=== PATIENT | male | born 1960 | race Caucasian/White ===

== ENCOUNTER 2019-05-22 06:00 | Day surgery (SDC) | payer SELFPAY ==
[2019-05-21 09:24] VITALS: BMI 28.4
[2019-05-22 06:15] VITALS: BP 150/87; PULSE 67; RESP 18; TEMP 36.2; O2SAT 98
[2019-05-22] MEDS: sodium chloride 0.9% 1,000 ML 30 ML (06:31)
--- NOTE | 2019-05-22 06:57 | ANES.PREANE2 ---
Pre-Anesthetic Assessment Pre-Anesthetic Assessment: Height/Weight: Height 1.73 m Weight 84.822 kg Temp Pulse Resp BP Pulse Ox 97.2 F L 67 18 150/87 98 05/22/19 06:15 05/22/19 06:15 05/22/19 06:15 05/22/19 06:15 05/22/19 06:15 Preop Diagnosis: History of hepatitis C and diverticulitis Proposed Procedure: Operation Date: 05/22/19 07:30 Proposed Procedures p EGD/COLON(Not Applicable) - Rory Carrion MD s EGD/COLON(Not Applicable) - Rory Carrion MD Was Beta Cesar taken within 24 hours: N/A Last intake: Intake Last Liquid Date 05/22/19 Last Liquid Time 00:00 Social: Social History: Tobacco and No alcohol Packs per day: 1 Pack years: 40+ Exam: Pre-Anes Outpt Exam: alert, oriented x 3, clear to auscultation bilaterally and regular rate & rhythm Airway: Submandibular: WNL Cervical ROM: WNL Dentition: False Pulmonary: Pulmonary: COPD CV/HEM: CV/HEM: HTN : : None reported Hepatic: Hepatic: Cirrohsis (C) GI: GI: None reported Metabolic: Metabolic: None reported Musc/skel: Musc/skel: Lower Back Pain and OA/DJD Neuropsych: Neuropsych: None reported Anesthetic Plan: ASA status: 2 Anesthesia: MAC Risk of > 500 ml blood loss (7ml/kg in children): No PFSH Anesthesia PFSH: Medical History (Updated 04/13/19 @ 17:01 by Rory Carrion MD) Acute diverticulitis Social History Smoking and tobacco status: current every day smoker cigarettes Packs smoked per day: 1 Quit status (tobacco): has quit using tobacco Year quit tobacco: 6 months Second hand smoke exposure: No Alcohol intake: never Desire information about alcohol rehabilitation?: No Desire information about substance/drug rehabilitation?: No Adopted: No Caregiver/support person: No Lives independently: Yes Household members: none Housing: House Marital status: Highest education level completed: High School Graduate service: No Current occupational status: disabled Current occupational exposures/hazards: No Pets and animals: No History of recent travel: No Leisure activites: hunting and fishing Sexually active: No Current gender identity: Male Amirah/Zoroastrianism: Episcopal Special amirah needs: No Agree to transfusion: Yes Financial difficulty paying for basics: Decline to Answer Data Anesthesia Cardiac Studies: No Data to Display
--- NOTE | 2019-05-22 07:07 | PM.HP ---
Providers/Chief Complaint Primary Care Provider: BOB Berrios History of Present Illness Chief Complaint: Abdominal pain History of present illness: Guanaco Booth is a 58 year old male referred to me due to history of upper abdominal pain and concern for gallbladder disease full H&P was obtained 11 April 2019 Gives history of hepatitis C pending treatment and evaluation by Dr. Duron Currently the patient had another episode of diverticulitis 3 weeks ago and it was first time to be disclosed to me today Review of Systems General: Reports: 10 or more systems reviewed and unremarkable except in HPI and below Medications/Allergies Allergies Allergy/AdvReac Type Severity Reaction Status Date / Time No Known Allergies Allergy Verified 05/22/19 07:08 PFSH Acute PFSH: Medical History (Updated 05/22/19 @ 07:09 by Rory Carrion MD) Acute diverticulitis BPH (benign prostatic hyperplasia) Cholelithiasis Constipation Fatty infiltration of liver Hepatitis C antibody positive in blood Hypertension Pre-diabetes Family History Father Cancer prostate Grandfather Cancer lung Family/Other Hypertension Diabetes Denies family history of Anesthesia complication Bleeding disorder Social History Smoking and tobacco status: current every day smoker cigarettes Packs smoked per day: 1 Quit status (tobacco): has quit using tobacco Year quit tobacco: 6 months Second hand smoke exposure: No Alcohol intake: never Desire information about alcohol rehabilitation?: No Desire information about substance/drug rehabilitation?: No Adopted: No Caregiver/support person: No Lives independently: Yes Household members: none Housing: House Marital status: Highest education level completed: High School Graduate service: No Current occupational status: disabled Current occupational exposures/hazards: No Pets and animals: No History of recent travel: No Leisure activites: hunting and fishing Sexually active: No Current gender identity: Male 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 Special amirah needs: No Agree to transfusion: Yes Financial difficulty paying for basics: Decline to Answer Vitals/I&O/Wt Last Vital Signs Temp 97.2 F L 05/22/19 06:15 Pulse 67 05/22/19 06:15 Resp 18 05/22/19 06:15 BP 150/87 05/22/19 06:15 Pulse Ox 98 05/22/19 06:15 Weight last 48 hrs Weight 187 lb Weight 187 lb Physical Exam Const: COMMON NORMALS: no apparent distress and oriented x3 GENERAL APPEARANCE: cooperative ORIENTATION/CONSCIOUSNESS: Yes awake, Yes oriented to person, Yes oriented to place and Yes oriented to time HENMT: COMMON NORMALS: normocephalic HEAD & SCALP: normocephalic Eye: COMMON NORMALS: PERRL and no scleral icterus PUPIL: Yes PERRL GI: COMMON NORMALS: soft to palpation; negative for no hepatosplenomegaly INSPECTION: Yes normal to inspection PALPATION: Yes soft, No firm, No tender, No guarding, No rigid and No no hepatosplenomegaly A&P Assessment and plan (1) Abdominal pain: The original plan was to perform diagnostic EGD and colonoscopy giving the fact that the patient had recent diverticulitis likely I will limit the colonoscopy to a flex sig to minimize risk of perforation Informed consent per Follow on Dr. Duron's recommendations and down the road patient should benefit from gallbladder Status: Acute Code(s): R10.9 - Unspecified abdominal pain Attestations Medical Necessity Statement*: Outpatient Time Spent in Patient Care: 16 - 35 minutes (>than 50% of time spent in counselling and/or direct pt care on unit). Coding Level of Care Code Acute Community Service Representative for Chg Fwd Diagnoses Abdominal pain R10.9
--- NOTE | 2019-05-22 07:25 | SUR.OPER ---
2 clips placed at sigmoid colon polyp bx site
--- NOTE | 2019-05-22 07:32 | SUR.OPER ---
addition clip placed at second sigmoid colon bx site
[2019-05-22 07:39] VITALS: BP 161/92; PULSE 70; RESP 16; TEMP 36.4; O2SAT 98
--- NOTE | 2019-05-22 07:41 | ANE.PACU2 ---
 Inpatient post-anesthesia follow up: Airway intact: Yes Vital signs: Temperature 97.6 F Pulse Rate 70 Respiratory Rate 16 Blood Pressure 161/92 Pulse Oximetry 98 Oxygen Delivery Me thod Nasal Cannula Oxygen Flow Rate 3.0 Fraction of Inspir ed Oxygen Hydration adequate: Yes Nausea and vomiting: No Pain level: 1 Mental status: Baseline
[2019-05-22 07:59] VITALS: BP 151/96; PULSE 66; RESP 18; O2SAT 100
[2019-05-23 05:41] LABS: H. Pylori / CLO Test Negative
== END 2019-05-22 08:11 | disposition home or self-care (01) ==
PROVIDERS: Family Provider Internal Medicine; PCP Nurse Practitioner Family; Visit Provider Surgery
PROC: 0DJ08ZZ Inspection of Upper Intestinal Tract, Via Natural or Artificial Opening Endoscopic (ICD-10-PCS; CPT 43235; principal; 2019-05-22 07:30)
PROC: 0DJD8ZZ Inspection of Lower Intestinal Tract, Via Natural or Artificial Opening Endoscopic (ICD-10-PCS; CPT 45378; 2019-05-22 07:30)
DX: R10.9 Unspecified abdominal pain (principal); D12.5 Benign neoplasm of sigmoid colon; K62.1 Rectal polyp; K57.30 Diverticulosis of large intestine without perforation or abscess without bleeding; K21.9 Gastro-esophageal reflux disease without esophagitis; K29.70 Gastritis, unspecified, without bleeding; N40.0 Benign prostatic hyperplasia without lower urinary tract symptoms; B19.20 Unspecified viral hepatitis C without hepatic coma; R73.03 Prediabetes; I10 Essential (primary) hypertension; Z82.49 Family history of ischemic heart disease and other diseases of the circulatory system; Z83.3 Family history of diabetes mellitus; F17.210 Nicotine dependence, cigarettes, uncomplicated; J44.9 Chronic obstructive pulmonary disease, unspecified; M19.90 Unspecified osteoarthritis, unspecified site
CPT/HCPCS: 12345; 43239; 45385; 87077; 88305; J2704; J7030

== ENCOUNTER → 2019-07-23 16:25 | Outpatient (BNVA) | payer SELFPAY | PROVIDERS: Family Provider Internal Medicine; PCP Nurse Practitioner Family; Visit Provider Internal Medicine | DX: B19.20 Unspecified viral hepatitis C without hepatic coma (principal) | CPT/HCPCS: 87522 ==

== ENCOUNTER 2019-09-19 16:31 | Outpatient (CLI) | payer SELFPAY ==
[2019-09-19 17:31] LABS: Creatinine Urine, Random 35 mg/dL (39-259)
[2019-09-19 17:40] LABS: Microalbum Creatinine Ratio Ur 29 mg/dL (0-20); Microalbumin Random Urine 1 ug/dL (0-20)
== END 2019-09-19 16:32 | disposition home or self-care (01) ==
LOC: LAB 16:32
PROVIDERS: PCP Nurse Practitioner Family; Visit Provider Nurse Practitioner Family
DX: E11.9 Type 2 diabetes mellitus without complications (principal)
CPT/HCPCS: 82044; 85025

== ENCOUNTER 2019-09-20 15:56 | Outpatient (CLI) | payer SELFPAY | END 2019-09-20 15:57 | disposition home or self-care (01) | LOC: LAB 15:57 | PROVIDERS: PCP Nurse Practitioner Family; Visit Provider Nurse Practitioner Family | DX: E11.9 Type 2 diabetes mellitus without complications (principal) | CPT/HCPCS: 85025 ==

== ENCOUNTER 2019-09-23 17:21 | Outpatient (CLI) | payer SELFPAY ==
[2019-09-23 20:19] LABS: Basophils # 0.1 10^3/uL (0.0-0.1); Basophils % 0.9 %; Eosinophils # 0.1 10^3/uL (0.0-0.8); Eosinophils % 1.3 %; Hematocrit 44.6 % (42.0-52.0); Hemoglobin 14.2 g/dL (11.7-16.6); Lymphocytes # 1.5 10^3/uL (0.8-4.8); Lymphocytes % 19.7 %; Mean Corpuscular HGB Conc 31.8 g/dL (30.0-36.0); Mean Corpuscular Hemoglobin 29.3 pg (28.0-34.0); Mean Corpuscular Volume 92.1 fL (80-94); Mean Platelet Volume 12.1 fL (7.4-10.4); Monocytes # 0.5 10^3/uL (0.2-0.9); Monocytes % 6.3 %; Neutrophils # 5.5 10^3/uL (1.8-7.7); Neutrophils % 71.3 %; Nucleated Red Blood Cells % 0 %; Platelet Count 231 10^3/cmm (130-400); Red Blood Count 4.84 10^6/uL (4.1-5.3); Red Cell Distribution Width 12.6 % (12.1-15.1); White Blood Count 7.7 10^3/uL (4.0-10.0)
[2019-09-23 21:10] LABS: Estmated Average Glucose 117; Hemoglobin A1C 5.7 % (4.0-6.0)
[2019-09-23 21:13] LABS: Anion Gap 18.5 (5-19); Blood Urea Nitrogen 10 mg/dL (8-23); Calcium 9.9 mg/dL (8.5-10.5); Carbon Dioxide 26 mmol/L (22-29); Chloride 101 mmol/L (98-107); Glomerular Filtration Rate 85.8 mL/min (90-130); Glucose 116 mg/dL (65-115); Osmolality Calculated 289 mOsm/kg (285-295); Potassium 4.5 mmol/L (3.5-5.1); Sodium 141 mmol/L (136-145)
== END 2019-09-23 17:22 | disposition home or self-care (01) ==
LOC: LAB 17:22
PROVIDERS: PCP Nurse Practitioner Family; Visit Provider Nurse Practitioner Family
DX: E11.9 Type 2 diabetes mellitus without complications (principal)
CPT/HCPCS: 80048; 83036; 85025

== ENCOUNTER 2019-11-18 11:47 | Outpatient (CLI) | payer SELFPAY ==
[2019-11-18 12:14] LABS: Basophils # 0.1 10^3/uL (0.0-0.1); Basophils % 0.6 %; Eosinophils # 0.1 10^3/uL (0.0-0.8); Hematocrit 44.7 % (42.0-52.0); Lymphocytes # 1.5 10^3/uL (0.8-4.8); Lymphocytes % 16.9 %; Mean Corpuscular HGB Conc 33.6 g/dL (30.0-36.0); Mean Corpuscular Hemoglobin 30.1 pg (28.0-34.0); Mean Corpuscular Volume 89.8 fL (80-94); Mean Platelet Volume 10.1 fL (7.4-10.4); Monocytes # 0.5 10^3/uL (0.2-0.9); Monocytes % 5.6 %; Neutrophils # 6.71 10^3/uL (1.8-7.7); Neutrophils % 75.3 %; Nucleated Red Blood Cells % 0 %; Platelet Count 261 10^3/cmm (130-400); Red Blood Count 4.98 10^6/uL (4.1-5.3); Red Cell Distribution Width 12.1 % (12.1-15.1); White Blood Count 8.9 10^3/uL (4.0-10.0)
[2019-11-18 12:27] LABS: INR 0.93 (0.8-1.2)
[2019-11-18 12:32] LABS: Alanine Aminotransferase 40 U/L (0-41); Albumin Level 4.4 g/dL (3.5-5.2); Alkaline Phosphatase 95 IU/L (40-130); Anion Gap 14.2 (5-19); Aspartate Amino Transferase 29 U/L (0-40); Blood Urea Nitrogen 9 mg/dL (8-23); Calcium 9.7 mg/dL (8.5-10.5); Carbon Dioxide 26 mmol/L (22-29); Chloride 100 mmol/L (98-107); Globulin 3.7 g/dL (1.3-4.6); Glomerular Filtration Rate 98.3 mL/min (90-130); Glucose 107 mg/dL (65-115); Osmolality Calculated 278 mOsm/kg (285-295); Potassium 4.2 mmol/L (3.5-5.1); Sodium 136 mmol/L (136-145); Total Bilirubin 0.3 mg/dL (0.15-1.2); Total Protein 8.1 g/dL (6.6-8.7)
== END 2019-11-18 11:48 | disposition home or self-care (01) ==
LOC: LAB 11:51
PROVIDERS: PCP Nurse Practitioner Family; Visit Provider Surgery
DX: K76.0 Fatty (change of) liver, not elsewhere classified (principal)
CPT/HCPCS: 80053; 85025; 85610

== ENCOUNTER → 2019-11-29 08:46 | Outpatient (BNVA) | payer SELFPAY | PROVIDERS: PCP Nurse Practitioner Family; Visit Provider Internal Medicine | DX: K80.20 Calculus of gallbladder without cholecystitis without obstruction (principal); Z20.818 Contact with and (suspected) exposure to other bacterial communicable diseases | CPT/HCPCS: 87635 ==

== ENCOUNTER 2019-12-03 06:04 | Day surgery (SDC) | payer SELFPAY ==
[2019-12-02 13:34] VITALS: BMI 30.5
[2019-12-03 06:24] VITALS: BP 120/66; PULSE 66; RESP 18; TEMP 36.4; O2SAT 98
[2019-12-03] MEDS: sodium chloride 0.9% 1,000 ML 30 ML IV (06:27)
--- NOTE | 2019-12-03 06:38 | W.PM.OPSUD ---
Surgery/Procedure H&P Update DATE OF PROCEDURE: December 03, 2019 DATE H&P PERFORMED: 11/18/19 H&P UPDATE INFORMATION: I have reviewed H&P completed within last 30 days, I have examined patient prior to procedure and No changes to prior documentation (Except that the patient lost about 10 pounds roughly since he started on the liquid protein diet) PREOP DIAGNOSIS: Symptomatic cholelithiasis PRIMARY INDICATION FOR PROCEDURE: The same PLANNED PROCEDURE: Operation Date: 12/03/19 07:55 Proposed Procedures p Laparoscopic Cholecystectomy 15135 K80.20(Not Applicable) - Rory Carrion MD
--- NOTE | 2019-12-03 06:44 | ANES.PREANE2 ---
Pre-Anesthetic Assessment Pre-Anesthetic Assessment: Height/Weight: Height 1.73 m Weight 91.172 kg Temp Pulse Resp BP Pulse Ox 97.6 F 66 18 120/66 98 12/03/19 06:24 12/03/19 06:24 12/03/19 06:24 12/03/19 06:24 12/03/19 06:24 Preop Diagnosis: Symptomatic cholelithiasis Proposed Procedure: Operation Date: 12/03/19 07:55 Proposed Procedures p Laparoscopic Cholecystectomy 11023 K80.20(Not Applicable) - Rory Carrion MD Familial anesthetic complications: None Last intake: Intake Last Liquid Date 12/02/19 Last Liquid Time 23:00 Last Solid Date 12/02/19 Last Solid Time 23:00 Social: Social History: No alcohol and No tobacco Comment: former smoker - quit 6 months ago Exam: Pre-Anes Outpt Exam: alert, oriented x 3, clear to auscultation bilaterally and regular rate & rhythm Airway: Cervical ROM: WNL MP: 3 Dentition: False Pulmonary: Pulmonary: COPD (mild) CV/HEM: CV/HEM: HTN Hepatic: Hepatic: Hepatitis (hepatiti C w/ some liver damage) Anesthetic Plan: ASA status: 2 Anesthesia: General Risk of > 500 ml blood loss (7ml/kg in children): No Meds/Allergies Current Medications: Current Medications Generic Name Dose Route Start Last Admin Trade Name Freq PRN Reason Stop Dose Admin Sodium Chloride 1,000 mls @ 30 ml s/hr 12/03/19 06:15 12/03/19 06:27 Sodium Chloride 0.9% IV 12/04/19 06:14 30 mls/hr .Q24H WILFREDO Administration PFSH Anesthesia PFSH: Medical History Acute diverticulitis BPH (benign prostatic hyperplasia) Cholelithiasis Constipation Fatty infiltration of liver Hepatitis C antibody positive in blood Hypertension Pre-diabetes Family History Father Cancer prostate Grandfather Cancer lung Family/Other Hypertension Diabetes Denies family history of Anesthesia complication Bleeding disorder Social History Smoking and tobacco status: current every day smoker cigarettes Packs smoked per day: 1 Quit status (tobacco): has quit using tobacco Year quit tobacco: 6 months Second hand smoke exposure: No Alcohol intake: never Desire information about alcohol rehabilitation?: No Desire information about substance/drug rehabilitation?: No Adopted: No Caregiver/support person: No Lives independently: Yes Household members: none Housing: House Marital status: Highest education level completed: High School Graduate service: No Current occupational status: disabled Current occupational exposures/hazards: No Pets and animals: No History of recent travel: No Leisure activites: hunting and fishing Sexually active: No Current gender identity: Male Amirah/Anabaptism: Nondenominational Special amirah needs: No Agree to transfusion: Yes Financial difficulty paying for basics: Decline to Answer Data Anesthesia Cardiac Studies: No Data to Display
--- NOTE | 2019-12-03 10:01 | P.OP_ITS ---
Operative Report Date of procedure: December 03, 2019 Pre-op Diagnosis: Symptomatic cholelithiasis Post-op diagnosis: other (Chronic calculus cholecystitis with extensive adhesions) Procedure Done: Laparoscopic cholecystectomy and placement of large piece of Surgicel at the gallbladder bed and onto the second part of the duodenum Implants: Surgicel Specimens removed/disposition: Gallbladder and contents Surgeon: Rory Carrion [employer] Professor: Surgical sanket Jennings Anesthesia: General (product lead Price) Estimated blood loss (mL): 50 Condition: stable Disposition: same day Brief History: This is a pleasant 59 years old gentleman with history of hepatitis C that got treatment for and continues to have symptomatic cholelith iasis. . Plan of care; After thorough history physical examination and reviewing the chart ,I counseled the patient for laparoscopic cholecystectomy possible open, indications risks including but not limited injury to the common bile duct and other viscera.benefits and alternatives all discussed with the patient, and she did agree to proceed. All questions have been answered and all concerns have been addressed to patient's satisfaction. Rationale was carefully and clearly discussed with the patient.Appropriate informed consent have been reviewed and signed. Procedure: Patient was identified in the holding area and taken back to the operative suite, placed in supine position intubated by anesthesia . Time-out was done verifying the patient's name/date of /planned procedure and destination after the procedure, all were in agreement. SCDs confirmed to be functioning, preoperative antibiotics administered per protocol, and beta bl ocker protocol was confirmed. Patient was appropriately secured to the table, footboard was applied to the OR table, before prep and drape anesthesia was asked to tilt the table back and forth to make sure that the patient is appropriately secured and she was. Prep and drape of the abdomen was done under the usual sterile technique, followed by that supraumbilical skin incision,skin incision was done by a 15 blade knife, and stay sutures were applied to the fascia and Martins trocar technique was used to enter the abdominal without injuring any abdominal viscera, started by low flow gas insufflation followed by a high flow, started with a 10 mm laparoscope and under direct vision there was no evidence of any injuries, the scope then switched to a 30? ,10 millimeter scope and under direct visualization 5 millimeter trocar was inserted in the epigastric region followed by two 5 mm trocars were inserted in the right upper quadrant that was done after injection of local lidocaine 2% at all incision sites. Gallbladder showed chronic calculus cholecystitis with extensive adhesions and features of liver cirrhosis yet no evidence of ascites. Patient was then positioned in the head up and tilted to the left Ratcheted forceps were introduced into the lateral most 5mm port and was applied unto the fundus of the gallbladder cephalad and using Bullet forceps the infundibulum of the gallbladder was retracted laterally. Due to the extensive nature of adhesions a LigaSure device was used for taking adhesions down Using [place] forceps then L-hook cautery to dissect the peritoneum overlying the Calot's triangle whihc was then opened medially and laterally until the cystic duct and the cystic artery were skeletonized. Dissection was carried along the body of the gallbladder and after ensuring critical view of safety was identfied. Cystic duct and cystic artery where seen connected to the gallbladder. Clips were applied on the cystic duct towards the common bile duct 1 towards the gallbladder then divided is in sharp scissors, 2 clips were then applied onto the cystic artery and 1 towards the gallbladder and divided by sharp scissors. Dissection was then carried along of the gallbladder from the gallbladder fossa using cautery as well as sharp dissection with heat energy. The gallbladder then was dissected out from the gallbladder fossa totally , cholecystectomy was then achieved and was placed in an Endo Catch bag and then retrieved from the Martins trocar site under direct visualization using a 5 mm 30? scope through the epigastric trocar, specimen was then passed to the circulating nurse to go for permanent pathology,irrigation and hemostasis was done to the gallbladder fossa after hemostasis was secured, final survey laparoscopy was done that showed no injuries.Suctio/irrigation was obtained. Additional traversing vessel was clipped and an additional clip was applied at the adhesions towards the second part of the duodenum. I elected at this point to apply a large piece of Surgicel towards the gallbladder bed and at the second part of the duodenum also there was some oozing from omental adhesions I elected to apply Endoloop PDS for hemostasis. The supraumbilical fascial defect was then closed using interrupted Vicryl sutures using a fascial closure device ;Mynor Jasso under direct visualization Gas was allowed to deflate,Trocars were then taken out under direct vision there was no evidence of bleeding Specimen was passed to the circulating nurse for permanent pathology. No drains were placed and the supraumbilical incision as well as all trocar sites were closed by by 4-0 Monocryl to approximate the skin edges of the supraumbilical incision, dressing was applied in the form of surgical glue Count of sponges, needles and instruments were completed at the end of the procedure As the patient was in the process of weaning off anesthesia and extubation the Vicryl sutures got disrupted and a pop was heard at the umbilical incision. At that point I had to scrub back in and opened incision found sutures were broken and by inspection there was no injuries to the bowel and fresh sutures were placed in the form of interrupted [id number] #1 PDS sutures under direct visualization followed by 3-0 Vicryl and surgical glue.Following that patient was extubated deeper per anesthesia provider and was taken to recovery area in a stable condition. I was present for the whole entire procedure.
[2019-12-03 10:43] VITALS: BP 123/73; PULSE 71; RESP 16; TEMP 36.2; O2SAT 96
[2019-12-03 10:45] VITALS: PULSE 71; RESP 16; O2SAT 97
[2019-12-03 10:50] VITALS: BP 91/72; PULSE 71; RESP 19; TEMP 36.1; O2SAT 96
[2019-12-03 11:05] VITALS: RESP 18; O2SAT 98
[2019-12-03] MEDS: morphine 4 mg/mL SDV 1 mL IVP (11:05)
--- NOTE | 2019-12-03 11:23 | ANE.PACU2 ---
Inpatient post-anesthesia follow up: Airway intact: Yes Vital signs: Temperature 97.0 F Pulse Rate 71 Respiratory Rate 18 Blood Pressure 91/72 Pulse Oximetry 98 Oxygen Delivery Me thod Room Air Oxygen Flow Rate Fraction of Inspir ed Oxygen Hydration adequate: Yes Nausea and vomiting: No Pain level: 4 Mental status: Baseline
[2019-12-03 11:33] VITALS: BP 144/79; PULSE 70; RESP 18; TEMP 36.6; O2SAT 97
== END 2019-12-03 11:41 | disposition home or self-care (01) ==
PROVIDERS: PCP Nurse Practitioner Family; Visit Provider Surgery
PROC: 0FT44ZZ Resection of Gallbladder, Percutaneous Endoscopic Approach (ICD-10-PCS; CPT 47562; principal; 2019-12-03 07:55)
DX: K80.10 Calculus of gallbladder with chronic cholecystitis without obstruction (principal); K66.0 Peritoneal adhesions (postprocedural) (postinfection); K74.60 Unspecified cirrhosis of liver; J44.9 Chronic obstructive pulmonary disease, unspecified; I10 Essential (primary) hypertension; N40.0 Benign prostatic hyperplasia without lower urinary tract symptoms; R73.03 Prediabetes; Z86.19 Personal history of other infectious and parasitic diseases; Z87.891 Personal history of nicotine dependence
CPT/HCPCS: 47562; 12345; 88304; 96374; J0131; J0690; J1100; J2270; J2405; J2704; J2710; J3010; J3490; J7030

== ENCOUNTER → 2020-01-21 12:30 | Outpatient (BNVA) | payer SELFPAY | PROVIDERS: PCP Nurse Practitioner Family; Visit Provider Nurse Practitioner Family | DX: B18.2 Chronic viral hepatitis C (principal) | CPT/HCPCS: 87522 ==

== ENCOUNTER 2020-04-20 11:34 | Observation (INO) | payer SELFPAY ==
[2020-04-20] VITALS (9 sets, daily range): BP systolic 125–167; BP diastolic 71–123; PULSE 59–77; RESP 16–20; TEMP 36.4–37; O2SAT 95–100; BMI 31.9
--- NOTE | 2020-04-20 12:09 | XRR_ITS ---
PROCEDURE INFORMATION: Exam: XR Chest, 1 View Exam date and time: 04/20/2020 12:13 PM Age: 59 years old Clinical indication: Chest pain; Type not specified TECHNIQUE: Imaging protocol: XR of the chest Views: 1 view. COMPARISON: No relevant prior studies available. FINDINGS: Lungs: Subtle airspace disease right lung base. Subpulmonic effusion. Pleural space: See Lungs finding. Heart/Mediastinum: Unremarkable. No cardiomegaly. Bones/joints: Unremarkable. XR/XR chest 1V portable [id number] IMPRESSION: Subtle airspace disease right lung base. Subpulmonic effusion. Lungs are otherwise well aerated.
--- NOTE | 2020-04-20 12:09 | ECG_ITS ---
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 Measurements Intervals [place] Rate: 77 P: 51 NH: 127 QRS: 58 QRSD: 90 T: 41 QT: 371 QTc: 421 Interpretive Statements SINUS RHYTHM No previous ECG available for comparison Electronically Signed On 04-20-2020 18:43:53 TRADING MANAGER by Fern Juares M.D. [email or web address]
--- NOTE | 2020-04-20 12:16 | CT_ITS ---
WS: [id number] CT ANGIOGRAM CEREBRAL AND CAROTID ARTERIES HISTORY: left facial numbness TECHNIQUE: CT angiogram is performed of the carotid and cerebral arteries. During arterial injection imaging is obtained from the skull vertex to the aortic arch in 1.25 mm imaging. Coronal and sagittal reformats are submitted. Additional multi planar reformats of the carotid and cerebral arteries are submitted, MIP imaging also reviewed. NASCET criteria utilized. All CT scans at [facility] use at least one of these dose optimization techniques: automated exposure control; mA and/or kV ad justment per patient size (includes targeted exams where dose is matched to clinical indication); or iterative reconstruction. CONTRAST: Visipaque 320; 95 mL IV. DLP: 2670.88 mGy.cm COMPARISON: None available. Carotid Angiogram: Right carotid: Common carotid artery: Arises normally from the innominate artery. No significant plaque or stenosis. Internal carotid artery: No significant stenosis. Minimal intimal thickening and a few calcified plaq ues at the bifurcation. External carotid artery: Patent. Left carotid: Common carotid artery: Arises normally from the aorta. No significant plaque or stenosis. Internal carotid artery: Minimal intimal thickening and a few minimal plaques at the bifurcation. External carotid artery: Patent. Right vertebral artery: Unremarkable. Left vertebral artery: Unremarkable. Arises normally from the subclavian artery. Subclavian arteries: No stenosis or significant abnormality. Upper thorax: Spiculated nodule LEFT upper lobe with a maximum diameter of 10.4 mm. There may be very slight cavitation. This nodule is on a background of centrilobular emphysema. Benign RIGHT upper lob e granuloma. Thyroid gland: Normal. Osseous structures: Advanced degenerative changes in the cervical spine centered at C5-C6. No fractur es. CEREBRAL ANGIOGRAM: Intracranial vertebral arteries: Normal with no significant atherosclerosis. Basilar artery: No significant stenosis or occlusion. No aneurysm. Intracranial Internal carotid arteries: No stenosis of any significance. There are a few scattered ca lcified plaques. Middle cerebral arteries: Normal. Anterior cerebral arteries and ACOM: Normal. Posterior cerebral arteries and PCOM's: Small caliber hypoplastic LEFT P-comm. Posterior communicatin g artery on the RIGHT and the posterior cerebral arteries are patent. Dural venous sinuses are normally enhancing. Mastoid air cells: Normal. Paranasal sinuses: Normal. Calvarium: Normal. CT/CT angio headneck* [id number] IMPRESSION: 1. No significant carotid artery stenosis. Mild plaque and intimal thickening in the carotid bifurcations and intracranial carotid arteries. 2. Negative vertebral arteries. 3. Unremarkable bois forte of Khan. 4. Spiculated mass LEFT upper lobe with a maximum diameter of 10.4 mm. Recommen d follow-up dedicated chest CT with IV contrast which can be performed on an ou tpatient basis.
--- NOTE | 2020-04-20 12:16 | CT_ITS ---
WS: [id number] CT HEAD NONCONTRAST HISTORY: Symptoms of Acute Stroke TECHNIQUE: Contiguous axial imaging performed through the brain in 2.5 mm imaging. Bone and soft tiss ue windows. Sagittal and coronal reformats reviewed. All CT scans at [facility] use at ast one of these dose optimization techniques: automated exposure control; mA and/or kV adjustment pe r patient size (includes targeted exams where dose is matched to clinical indication); or iterative r econstruction. DLP: 848.7 mGy.cm COMPARISON: None available. No acute intracranial hemorrhage, midline shift or mass effect. Mild atrophy and mild chronic microvascular ischemic disease. Ventricles: Normal size with no hydrocephalus. Intracranial carotid arteries are ectatic with calcification. Paranasal sinuses: As visualized are clear. Mastoid air cells: Well pneumatized. Calvarium and scalp: Skull is intact with no soft tissue edema or swelling. CT/CT head wo con* [id number] IMPRESSION: 1. No acute intracranial hemorrhage or edema. 2. Mild cerebral atrophy and chronic microvascular ischemic disease. No acute process identified. Notified Joseph Duffy MD at 04/20/2020 12:27 PM.
--- NOTE | 2020-04-20 12:22 | W.ED.CHESTPA ---
HPI - Chest Pain General: Chief Complaint: Chest Pain Stated Complaint: chest pains, high blood pressure, dizziness Time Seen by Provider: 04/20/20 12:02 History of Present Illness: HPI narrative: The patient is a 59-year-old male with past medical history COPD, hypertension, hepatitis C who comes to the ER complaining of left-sided facial tingling since 8 AM this morning. He also says over the past few days he has had left-sided chest pain which feels sharp and heavy. He says he has COPD and he has ran out of his inhaler and he is unsure what is the cause of this chest pain. This morning he woke up with severely high blood pressure systolic up to 200 and he took his a.m. blood pressure medicines and it did not go down. At the doctor's office it was again systolic 200 and he was told to come to the ER to get it checked out. His blood pressure in the ER is 166/123 and he has no chest pain but he does continue to complain of left-sided facial tingling. He says the chest pain has been on and off since February and he has not seen anyone about this because of Covid. Associated symptoms: Deny abdominal pain, dyspnea or palpitations Review of Systems General: Reports: 10 or more systems reviewed and unremarkable except in HPI and below Const: Denies: fatigue Eyes: Denies: change in vision, blurry vision or eye redness ENMT: Denies: throat pain, swelling of lips/tongue, ear or mastoid pain or nasal congestion Card: Denies: chest pain, palpitations, irregular heart rhythm, edema, dyspnea on exertion or orthopnea Resp: Denies: dyspnea, productive cough or non-productive cough GI: Denies: abdominal pain, diarrhea or GI cramping : Denies: flank pain, urinary frequency or urinary urgency Musc: Denies: neck pain, back pain, extremity pain, joint pain, joint redness, limited range of motion or muscle weakness Skin/Breast: Denies: rash, pruritus, erythema, skin pain or skin tenderness Neuro: Reports: sensory changes (Left facial paresthesias); Denies: headache(s), numbness in extremities, weakness in extremities, difficulty walking, dizziness, confusion or Slurred speech present Psych: Denies: anxiety or depression Endo: Denies: polyuria All/Imm: Denies: urticaria, throat swelling or tongue swelling PFSH ED PFSH: Medical History (Updated 04/20/20 @ 15:41 by Joseph Duffy MD) Acute diverticulitis BPH (benign prostatic hyperplasia) Constipation Fatty infiltration of liver Hepatitis C antibody positive in blood Hypertension Pre-diabetes Surgical History Cholelithiasis Family History Father Cancer prostate Grandfather Cancer lung Family/Other Hypertension Diabetes Denies family history of Anesthesia complication Bleeding disorder Social History Smoking and tobacco status: current every day smoker cigarettes Packs smoked per day: 1 Quit status (tobacco): has quit using tobacco Year quit tobacco: 6 months Second hand smoke exposure: No Alcohol intake: never Desire information about alcohol rehabilitation?: No Desire information about substance/drug rehabilitation?: No Adopted: No Caregiver/support person: No Lives independently: Yes Household members: none Housing: House Marital status: Highest education level completed: High School Graduate service: No Current occupational status: disabled Current occupational exposures/hazards: No Pets and animals: No History of recent travel: No Leisure activites: hunting and fishing Sexually active: No Current gender identity: Male Amirah/Buddhism: Orthodoxy Special amirah needs: No Agree to transfusion: Yes Financial difficulty paying for basics: Decline to Answer Physical Exam Const: COMMON NORMALS: no acute distress, average body habitus, patient oriented x3, no limitations, healthy appearing, alert and well nourished GENERAL APPEARANCE: cooperative, comfortable, well kempt and well developed ORIENTATION/CONSCIOUSNESS: Yes awake, Yes oriented to person, Yes oriented to place and Yes oriented to time HENMT: COMMON NORMALS: normocephalic, external ears normal and Normal external nose present HEAD & SCALP: normal to inspection and normocephalic NOSE: Normal external nose present EXTERNAL EAR: Yes external ears normal MOUTH: Normal oral and palatal mucosa present THROAT: posterior oropharynx normal Eye: COMMON NORMALS: Equal, round and reactive pupils present and EOMs intact bilaterally GENERAL EYE: appearance normal, both eyes and all related structures PUPIL: Yes Equal, round and reactive pupils present Neck/C-Spine: COMMON NORMALS: full ROM, no lymphadenopathy, no meningeal signs and no JVD GENERAL: Yes normal visual inspection Lymph: LYMPHATIC: no lymphadenopathy noted Chest: COMMONS NORMALS: normal inspection of the chest and normal palpation of entire chest wall Resp: COMMON NORMALS: normal respiratory effort, No retractions, No use of accessory muscles, clear to auscultation bilaterally and percussion normal EFFORT & INSPECTION: Yes able to speak in complete sentences AUSCULTATION: clear to auscultation bilaterally PERCUSSION: percussion normal Cardio: COMMON NORMALS: no JVD, regular rate, regular rhythm, S1 normal heart sound present, S2 normal heart sound present and Peripheral pulses 2+ throughout RATE: regular rate RHYTHM: regular rhythm HEART SOUNDS: S1 normal heart sound present and S2 normal heart sound present PERIPHERAL PULSES: Peripheral pulses 2+ throughout GI: COMMON NORMALS: Normal to inspection, nondistended, normoactive bowel sounds present, Soft to palpation, non-tender and no masses INSPECTION: Yes normal to inspection PALPATION: Yes Soft to palpation : COMMON NORMALS: Yes no CVA tenderness BLADDER/KIDNEY EXAM: Yes no CVA tenderness Back/Pelvis: COMMON NORMALS: no CVA tenderness, thoracic and lumbar spine normal to inspection, no thoracic nor lumbar tenderness and thoraco-lumbar ROM normal Extremity: COMMON NORMALS: normal to inspection, full ROM, capillary refill normal, no joint enlargement and no pedal edema GENERAL: Yes normal exam except as noted Neuro: COMMON NORMALS: patient oriented x3, CN's II-XII intact bilaterally, moves all extremities, no focal motor deficits, no sensory deficits noted and gait normal SENSORIUM/ORIENTATION: Yes alert, Yes oriented to person, Yes oriented to place and Yes oriented to time MENINGEAL SIGNS: Yes no meningeal signs Psych: COMMON NORMALS: mental status grossly normal, Normal thought process present, cooperative, normal affect and speech normal APPEARANCE: Yes well kempt ATTITUDE: Yes calm SPEECH: Yes normal speech THOUGHT PROCESS: Normal thought process present Skin: COMMON NORMALS: no rashes or lesions noted GENERAL SKIN EXAM: no rashes or lesions noted Course Vital Signs: Vital signs: Vital Signs Temperature 98.6 F 04/20/20 11:46 Pulse Rate 59 L 04/20/20 15:00 Respiratory Rate 18 04/20/20 14:29 Blood Pressure 151/76 04/20/20 15:00 Pulse Oximetry 95 04/20/20 15:00 MDM - Chest Pain MDM Narrative: Medical decision making narrative: The patient came in continuing to complain of left-sided facial tingling. It is unclear if this is a TIA, chest pain radiating to his left arm and face. Discussed with Dr. De Guzman who will follow him upstairs. I notified Dr. De Guzman and the patient of the 1.1 cm spiculated mass in his left upper lobe. They will follow this upstairs as well. Lab Data: Labs: Lab Results 04/20/20 04/20/20 04/20/20 Range/Units 11:50 11:50 11:50 WBC 7.8 (4.0-10.0) 10^3/ uL RBC 5.13 (4.1-5.3) 10^6/u L Hgb 14.8 (11.7-16.6) g/dL Hct 44.7 (42.0-52.0) % MCV 87.1 (80-94) fL MCH 28.8 (28.0-34.0) pg MCHC 33.1 (30.0-36.0) g/dL RDW 11.9 L (12.1-15.1) % Plt Count 236 (130-400) 10^3/c mm MPV 11.7 H (7.4-10.4) fL Neut % (Auto) 75.9 % Lymph % (Auto) 17.3 % [place] % (Auto) 5.0 % Eos % (Auto) 0.8 % Baso % (Auto) 0.6 % Neut # (Auto) 5.94 (1.8-7.7) 10^3/u L Lymph # (Auto) 1.4 (0.8-4.8) 10^3/u L [place] # (Auto) 0.4 (0.2-0.9) 10^3/u L Eos # (Auto) 0.1 (0.0-0.8) 10^3/u L Baso # (Auto) 0.1 (0.0-0.1) 10^3/u L Nucleated RBC % (a uto) 0 % Nucleated RBCs # 0.0 /100WBC PT 13.60 (12.1-14.9) SECO NDS INR 1.01 (0.8-1.2) APTT 27.5 (23.9-36.7) SECO NDS D-Dimer <= 0.27 (0-0.59) ug/mIFE U Sodium 139 (136-145) mmol/L Potassium 4.4 (3.5-5.1) mmol/L Chloride 102 (98-107) mmol/L Carbon Dioxide 26 (22-29) mmol/L Anion Gap 15.4 (5-19) BUN 8 (8-23) mg/dL Creatinine 0.8 (0.7-1.2) mg/dL GFR Calculation 98.3 (90-130) mL/min Glucose 115 (65-115) mg/dL Calculated Osmolal ity 287 (285-295) mOsm/k g Calcium 10.2 (8.5-10.5) mg/dL Total Bilirubin 0.5 (0.15-1.2) mg/dL AST 21 (0-40) U/L ALT 27 (0-41) U/L Alkaline Phosphata se 128 (40-130) IU/L Troponin T Baselin e (0-15) ng/L NT-Pro-B Natriuret Pep 34 (0-125) pg/mL Total Protein 8.1 (6.6-8.7) g/dL Albumin 4.6 (3.5-5.2) g/dL Globulin 3.5 (1.3-4.6) g/dL Urine Color (Yellow) Urine Appearance (CLEAR) Urine pH (5-7) Ur Specific Gravit y (1.005-1.030) Urine Protein (Negative) Urine Glucose (UA) (Normal) Urine Ketones (Negative) Urine Blood (Negative) Urine Nitrate (Negative) Urine Bilirubin (Negative) Prot Sulfosalicyli c Acd (Negative) Urine Urobilinogen (Negative) mg/dL Ur Leukocyte Migd[place] ase (Negative) Urine Opiates Scre en (Negative) ng/mL Ur Barbiturates Sc reen (Negative) ng/mL Ur Phencyclidine S crn (Negative) ng/mL Ur Amphetamines Sc reen (Negative) ng/mL U Benzodiazepines Scrn (Negative) ng/mL Urine Cocaine Scre en (Negative) ng/mL U Marijuana (THC) Screen (Negative) ng/mL Ethyl Alcohol < 10 (0-10) mg/dL 04/20/20 04/20/20 04/20/20 Range/Units 11:50 13:05 13:05 WBC (4.0-10.0) 10^3/ uL RBC (4.1-5.3) 10^6/u L Hgb (11.7-16.6) g/dL Hct (42.0-52.0) % MCV (80-94) fL MCH (28.0-34.0) pg MCHC (30.0-36.0) g/dL RDW (12.1-15.1) % Plt Count (130-400) 10^3/c mm MPV (7.4-10.4) fL Neut % (Auto) % Lymph % (Auto) % [place] % (Auto) % Eos % (Auto) % Baso % (Auto) % Neut # (Auto) (1.8-7.7) 10^3/u L Lymph # (Auto) (0.8-4.8) 10^3/u L [place] # (Auto) (0.2-0.9) 10^3/u L Eos # (Auto) (0.0-0.8) 10^3/u L Baso # (Auto) (0.0-0.1) 10^3/u L Nucleated RBC % (a uto) % Nucleated RBCs # /100WBC PT (12.1-14.9) SECO NDS INR (0.8-1.2) APTT (23.9-36.7) SECO NDS D-Dimer (0-0.59) ug/mIFE U Sodium (136-145) mmol/L Potassium (3.5-5.1) mmol/L Chloride (98-107) mmol/L Carbon Dioxide (22-29) mmol/L Anion Gap (5-19) BUN (8-23) mg/dL Creatinine (0.7-1.2) mg/dL GFR Calculation (90-130) mL/min Glucose (65-115) mg/dL Calculated Osmolal ity (285-295) mOsm/k g Calcium (8.5-10.5) mg/dL Total Bilirubin (0.15-1.2) mg/dL AST (0-40) U/L ALT (0-41) U/L Alkaline Phosphata se (40-130) IU/L Troponin T Baselin e 8 (0-15) ng/L NT-Pro-B Natriuret Pep (0-125) pg/mL Total Protein (6.6-8.7) g/dL Albumin (3.5-5.2) g/dL Globulin (1.3-4.6) g/dL Urine Color Straw (Yellow) Urine Appearance Clear (CLEAR) Urine pH 8 H (5-7) Ur Specific Gravit y 1.010 (1.005-1.030) Urine Protein Neg (Negative) Urine Glucose (UA) Norm (Normal) Urine Ketones Negative (Negative) Urine Blood Neg (Negative) Urine Nitrate Negative (Negative) Urine Bilirubin Neg (Negative) Prot Sulfosalicyli c Acd Negative (Negative) Urine Urobilinogen Norm (Negative) mg/dL Ur Leukocyte Migdalia ase Negative (Negative) Urine Opiates Scre en Negative (Negative) ng/mL Ur Barbiturates Sc reen Negative (Negative) ng/mL Ur Phencyclidine S crn Negative (Negative) ng/mL Ur Amphetamines Sc reen Negative (Negative) ng/mL U Benzodiazepines Scrn Negative (Negative) ng/mL Urine Cocaine Scre en Negative (Negative) ng/mL U Marijuana (THC) Screen Negative (Negative) ng/mL Ethyl Alcohol (0-10) mg/dL Discharge Plan Discharge Patient Disposition: Placed in Observation Clinical Impression: Facial tingling, Chest pain, Mass Coding Level of Care Code ED Safety And Security Manager for Brian Fwd Exam Comprehensive
[2020-04-20] MEDS: iodixanol 320 mg/mL 100mL Btl IV (12:28)
[2020-04-20 13:18] LABS: Add Urine Microscopic? NO
[2020-04-20 13:24] LABS: Bilirubin Urine Neg (Negative); Blood Urine Neg (Negative); Glucose Urine UA Norm (Normal); Ketones Urine Negative (Negative); Leukocyte Esterase Urine Negative (Negative); Nitrate Urine Negative (Negative); Protein Urine Neg (Negative); Sulfosalicylic Acid Urine Negative (Negative); Urine Appearance Clear (CLEAR); Urine Color Straw (Yellow); Urobilinogen Urine Norm (Negative); pH Urine 8 (5-7)
[2020-04-20 13:36] LABS: Amphetamines Screen Urine Negative (Negative); Barbiturates Screen Urine Negative (Negative); Benzodiazepines Screen Urine Negative (Negative); Cocaine Screen Urine Negative (Negative); Opiate Screen Urine Negative (Negative); PCP Screen Urine Negative (Negative); THC Screen Urine Negative (Negative)
[2020-04-20 14:03] LABS: Basophils # 0.1 10^3/uL (0.0-0.1); Basophils % 0.6 %; Eosinophils # 0.1 10^3/uL (0.0-0.8); Eosinophils % 0.8 %; Hematocrit 44.7 % (42.0-52.0); Hemoglobin 14.8 g/dL (11.7-16.6); Lymphocytes # 1.4 10^3/uL (0.8-4.8); Lymphocytes % 17.3 %; Mean Corpuscular HGB Conc 33.1 g/dL (30.0-36.0); Mean Corpuscular Hemoglobin 28.8 pg (28.0-34.0); Mean Corpuscular Volume 87.1 fL (80-94); Mean Platelet Volume 11.7 fL (7.4-10.4); Monocytes # 0.4 10^3/uL (0.2-0.9); Neutrophils # 5.94 10^3/uL (1.8-7.7); Neutrophils % 75.9 %; Nucleated Red Blood Cells % 0 %; Platelet Count 236 10^3/cmm (130-400); Red Blood Count 5.13 10^6/uL (4.1-5.3); Red Cell Distribution Width 11.9 % (12.1-15.1); White Blood Count 7.8 10^3/uL (4.0-10.0)
--- NOTE | 2020-04-20 14:09 | ECG_ITS ---
[facility] Test Date: 2020-04-20 Pat Name: Guanaco Booth Department: Room: Gender: Male Ham Passer: : 1960 Requested By: Joseph Duffy Order Number: [id number] Kodi MD: Fern Juares M.D. Measurements Intervals [place] Rate: 71 P: 15 DE: 153 QRS: 25 QRSD: 100 T: 3 QT: 409 QTc: 445 Interpretive Statements SINUS RHYTHM Compared to ECG 04/20/2020 11:51:18 No significant changes Electronically Signed On 04-20-2020 18:54:07 MANAGER CONCRETE by Fern Juares M.D. [id number] f
[2020-04-20 14:33] LABS: Troponin(5th) Baseline 8 ng/L (0-15)
[2020-04-20 14:37] LABS: INR 1.01 (0.8-1.2)
[2020-04-20 14:38] LABS: Partial Thromboplastin Time 27.5 SECONDS (23.9-36.7)
[2020-04-20 14:40] LABS: Alanine Aminotransferase 27 U/L (0-41); Albumin Level 4.6 g/dL (3.5-5.2); Alkaline Phosphatase 128 IU/L (40-130); Blood Urea Nitrogen 8 mg/dL (8-23); Calcium 10.2 mg/dL (8.5-10.5); Carbon Dioxide 26 mmol/L (22-29); Chloride 102 mmol/L (98-107); D Dimer <= 0.27 ug/mIFEU (0-0.59); Globulin 3.5 g/dL (1.3-4.6); Glomerular Filtration Rate 98.3 mL/min (90-130); Glucose 115 mg/dL (65-115); NT Pro B Type Natriuretic Pept 34 pg/mL (0-125); Osmolality Calculated 287 mOsm/kg (285-295); Sodium 139 mmol/L (136-145); Total Bilirubin 0.5 mg/dL (0.15-1.2); Total Protein 8.1 g/dL (6.6-8.7)
[2020-04-20 15:01] LABS: Alcohol Level < 10 mg/dL (0-10)
[2020-04-20 15:02] LABS: Anion Gap 15.4 (5-19); Aspartate Amino Transferase 21 U/L (0-40); Potassium 4.4 mmol/L (3.5-5.1)
[2020-04-20 16:00] LABS: Troponin 5 2HR 9.89 ng/L (0-15); Troponin 5 2HR Delta 1.89 ABS# (0-10)
--- NOTE | 2020-04-20 16:31 | MRR_ITS ---
PROCEDURE INFORMATION: Exam: MR Head Without Contrast Exam date and time: 04/20/2020 5:48 PM Age: 59 years old Clinical indication: Dizziness; Additional info: Dizziness, ? CVA TECHNIQUE: Imaging protocol: MR of the head without contrast. Total images: 249 COMPARISON: CT head wo con* [id number] 04/20/2020 12:12 PM FINDINGS: Brain: No abnormal signal on the diffusion-weighted sequence to suggest restrictive diffusion or cytotoxic edema thus no evidence of active or acute intracranial pathologic process. No acute or subacute infarction, hemorrhagic event, mass or neoplastic process, vascular malformation, generalized edema or demyelination evident. Mild small vessel ischemic disease with senile periventricular leukomalacia. 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 Cerebral ventricles: Normal. No ventriculomegaly. Bones/joints: Unremarkable. Paranasal sinuses: No visible active paranasal sinus disease or mastoiditis within the [id number]. Mastoid air cells: Normal as visualized. No mastoid effusion. Orbital cavity: Orbital structures as imaged intact. Soft tissues: Unremarkable. MR/MR head wo con* [id number] IMPRESSION: 1. No evidence of active or acute intracranial pathologic process, hemorrhage, or trauma. 2. Mild small vessel ischemic disease with senile periventricular leukomalacia. 3. 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
--- NOTE | 2020-04-20 16:37 | CTR_ITS ---
PROCEDURE INFORMATION: Exam: CT Chest With Contrast; Diagnostic Exam date and time: 04/20/2020 4:42 PM Age: 59 years old Clinical indication: Abnormal findings; Lung mass or nodule; Not specified; Additional info: Possible tumor TECHNIQUE: Imaging protocol: Diagnostic computed tomography of the chest with intravenous contrast. Total images: 317 Radiation optimization: All CT scans at this facility use at least one of these dose optimization techniques: automated exposure control; mA and/or kV adjustment per patient size (includes targeted exams where dose is matched to clinical indication); or iterative reconstruction. Contrast material: OMNI 300; Contrast volume: 95 ml; Contrast route: INTRAVENOUS (IV); COMPARISON: CR XR chest 1V portable [id number] 04/20/2020 12:28 PM RADIATION DOSE METRICS: Total DLP (mGy-cm): 1089.54 FINDINGS: Lungs: Left lower lobe bullous emphysema to include a dominant bleb that measures 6.2 cm x 4.9 cm x 4.9 cm. No visible active interstitial or alveolar airspace disease. Scattered calcified granulomas of antecedent disease. Pleural space: Unremarkable. No pneumothorax. No pleural effusion. Heart: Moderate coronary artery disease. No visible pericardial effusion. No cardiomegaly. Aorta: The thoracic aorta is nonaneurysmal. Minimal arterial sclerotic disease. Lymph nodes: No visible evidence of active mediastinal or hilar lymphadenopathy. Calcified complexes of antecedent granulomatous disease. Liver: Cirrhotic appearing liver. Gallbladder and bile ducts: Status post cholecystectomy. Spleen: Splenomegaly. Rare calcified splenic granuloma of antecedent disease. Bones/joints: Levoscoliosis of the upper thoracic spine. No visible active or acute osseous pathology. Soft tissues: Unremarkable. Other findings: The appendix is visualized and appears noninflamed. CT/CT chest w con* [id number] IMPRESSION: 1. Currently no visible evidence of acute cardiopulmonary/cardiothoracic pathologic process. 2. Left lower lobe bullous emphysema to include a dominant bleb that measures 6.2 cm x 4.9 cm x 4.9 cm. 3. Evidence of antecedent granulomatous disease. 4. Moderate coronary artery disease. 5. Splenomegaly. Radiation Dose CTDIVOL = (mGy): DLP = 1089.54 (mGy-cm)
--- NOTE | 2020-04-20 16:39 | P.HP_ITS ---
Providers/Chief Complaint Primary Care Provider: BOB Berrios Chief Complaint: chest pains, high blood pressure, dizziness History of Present Illness Guanaco Booth is a 59 year old male with past medical history of COPD, hyp ertension, hepatitis C virus who presented to emergency room with complaints of dizziness, chest pain, left-sided face and left upper extremity tingling. The left-sided tingling was present for several months now. However he did not seek any medical advice for this problem. However today the tingling also involved the face and he also developed associated dizziness. On initial evaluation his blood pressure was about 210. Currently it is at 170 and he reports that his symptoms have improved significantly. He denies any modifying factors for the chest pain. He states that he is pretty active and walks about a mile every day without having any chest pain or shortness of breath. Main limiting factor for walking more is his arthritis. He never had chest pain before or any known cardiac medical conditions. His blood pressure was running high lately. He denies any associated headache, nausea or vomiting, problems with speech, gait, balance. No facial asymmetry. No focal weakness or sensory loss. No fevers or chills. No cough. Initial evaluation in the emergency room was unremarkable. EKG without ischemic changes. Troponin within normal range. CT of the brain was unremarkable. CTA head and neck was negative for vascular problems. However radiologist described possible mass in the left upper lobe. The patient states that previously he was told by his primary care provider to have additional work-up for suspected lung tumor. However he never followed these instructions. He quit smoking several months ago. He used to be a heavy smoker before that. Currently denies tobacco alcohol and substance abuse. Review of Systems General: Reports: 10 or more systems reviewed and unremarkable except in HPI and below Medications/Allergies Home Medications Medication Instructions Recorded Confirmed Last Taken Type lisinopril 20 mg tablet 20 mg PO DAILY@04/11/19 04/20/20 04/20/20 History tamsulosin 0.4 mg capsule 0.8 mg PO DAILY@04/11/19 04/20/20 04/20/20 History amlodipine 5 mg PO DAILY@12/02/19 04/20/20 04/20/20 History cholecalciferol (vitamin D3) 25 mcg PO DAILY@04/20/20 04/20/2018/21 History [Vitamin D3] ibuprofen 400 mg PO DAILY@04/20/20 04/20/20 04/20/20 History omeprazole 20 mg PO DAILY@04/20/20 04/20/20 04/20/20 History zinc 50 mg PO DAILY@04/20/20 04/20/20 04/20/20 History Allergies Allergy/AdvReac Type Severity Reaction Status Date / Time No Known Allergies Allergy Verified 04/20/20 11:49 PFSH Acute PFSH: Medical History (Updated 04/20/20 @ 15:41 by Joseph Duffy MD) Acute diverticulitis BPH (benign prostatic hyperplasia) Constipation Fatty infiltration of liver Hepatitis C antibody positive in blood Hypertension Pre-diabetes Surgical History Cholelithiasis Family History Father Cancer prostate Grandfather Cancer lung Family/Other Hypertension Diabetes Denies family history of Anesthesia complication Bleeding disorder Social History Smoking and tobacco status: current every day smoker cigarettes Packs smoked per day: 1 Quit status (tobacco): has quit using tobacco Year quit tobacco: 6 months Second hand smoke exposure: No Alcohol intake: never Desire information about alcohol rehabilitation?: No Desire information about substance/drug rehabilitation?: No Adopted: No Caregiver/support person: No Lives independently: Yes Household members: none Housing: House Marital status: Highest education level completed: High School Graduate service: No Current occupational status: disabled Current occupational exposures/hazards: No Pets and animals: No History of recent travel: No Leisure activites: hunting and fishing Sexually active: No Current gender identity: Male Amirah/Druze: Moravian Special amirah needs: No Agree to transfusion: Yes Financial difficulty paying for basics: Decline to Answer Vitals/I&O/Wt Last Vital Signs Temp 98.6 F 04/20/20 11:46 Pulse 59 L 04/20/20 15:00 Resp 18 04/20/20 14:29 BP 151/76 04/20/20 15:00 Pulse Ox 95 04/20/20 15:00 Weight last 48 hrs Weight 95.254 kg Physical Exam Narrative: EXAM NARRATIVE: The patient is awake alert and oriented. No acute distress. Mood and affect are appropriate. Responses are adequate. Skin is warm and dry. Moist mucous membranes. Neck supple. No JVD Lungs are clear to auscultation bilaterally. No respiratory distress Heart S1, S2, regular Abdomen soft, nontender, bowel sounds are present Extremities no edema cyanosis or calf tenderness bilaterally Neuro examination is within normal range including cerebellar test Eyes Genny, extraocular muscles are intact. Normal speech Data : 04/20/20 11:50 04/20/20 11:50 Other Labs: Laboratory Results WBC 7.8 10^3/uL (4.0-10.0) 04/20/20 11:50 RBC 5.13 10^6/uL (4.1-5.3) 04/20/20 11:50 Hgb 14.8 g/dL (11.7-16.6) 04/20/20 11:50 Hct 44.7 % (42.0-52.0) 04/20/20 11:50 MCV 87.1 fL (80-94) 04/20/20 11:50 MCH 28.8 pg (28.0-34.0) 04/20/20 11:50 MCHC 33.1 g/dL (30.0-36.0) 04/20/20 11:50 RDW 11.9 % (12.1-15.1) L 04/20/20 11:50 Plt Count 236 10^3/cmm (130-400) 04/20/20 11:50 MPV 11.7 fL (7.4-10.4) H 04/20/20 11:50 Neut % (Auto) 75.9 % 04/20/20 11:50 Lymph % (Auto) 17.3 % 04/20/20 11:50 [place] % (Auto) 5.0 % 04/20/20 11:50 Eos % (Auto) 0.8 % 04/20/20 11:50 Baso % (Auto) 0.6 % 04/20/20 11:50 Neut # (Auto) 5.94 10^3/uL (1.8-7.7) 04/20/20 11:50 Lymph # (Auto) 1.4 10^3/uL (0.8-4.8) 04/20/20 11:50 [place] # (Auto) 0.4 10^3/uL (0.2-0.9) 04/20/20 11:50 Eos # (Auto) 0.1 10^3/uL (0.0-0.8) 04/20/20 11:50 Baso # (Auto) 0.1 10^3/uL (0.0-0.1) 04/20/20 11:50 Nucleated RBC % (auto) 0 % 04/20/20 11:50 Nucleated RBCs # 0.0 /100WBC 04/20/20 11:50 PT 13.60 SECONDS (12.1-14.9) 04/20/20 11:50 INR 1.01 (0.8-1.2) 04/20/20 11:50 APTT 27.5 SECONDS (23.9-36.7) 04/20/20 11:50 D-Dimer <= 0.27 ug/mIFEU (0-0.59) 04/20/20 11:50 Sodium 139 mmol/L (136-145) 04/20/20 11:50 Potassium 4.4 mmol/L (3.5-5.1) 04/20/20 11:50 Chloride 102 mmol/L (98-107) 04/20/20 11:50 Carbon Dioxide 26 mmol/L (22-29) 04/20/20 11:50 Anion Gap 15.4 (5-19) 04/20/20 11:50 BUN 8 mg/dL (8-23) 04/20/20 11:50 Creatinine 0.8 mg/dL (0.7-1.2) 04/20/20 11:50 GFR Calculation 98.3 mL/min (90-130) 04/20/20 11:50 Glucose 115 mg/dL (65-115) 04/20/20 11:50 Calculated Osmolality 287 mOsm/kg (285-295) 04/20/20 11:50 Calcium 10.2 mg/dL (8.5-10.5) 04/20/20 11:50 Total Bilirubin 0.5 mg/dL (0.15-1.2) 04/20/20 11:50 AST 21 U/L (0-40) 04/20/20 11:50 ALT 27 U/L (0-41) 04/20/20 11:50 Alkaline Phosphatase 128 IU/L (40-130) 04/20/20 11:50 Troponin T Baseline 8 ng/L (0-15) 04/20/20 11:50 Troponin T 120 Minute 9.89 ng/L (0-15) 04/20/20 14:05 Delta Troponin T 1.89 ABS# (0-10) 04/20/20 14:05 NT-Pro-B Natriuret Pep 34 pg/mL (0-125) 04/20/20 11:50 Total Protein 8.1 g/dL (6.6-8.7) 04/20/20 11:50 Albumin 4.6 g/dL (3.5-5.2) 04/20/20 11:50 Globulin 3.5 g/dL (1.3-4.6) 04/20/20 11:50 Urine Color Straw (Yellow) 04/20/20 13:05 Urine Appearance Clear (CLEAR) 04/20/20 13:05 Urine pH 8 (5-7) H 04/20/20 13:05 Ur Specific [place] 1.010 (1.005-1.030) 04/20/20 13:05 Urine Protein Neg (Negative) 04/20/20 13:05 Urine Glucose (UA) Norm (Normal) 04/20/20 13:05 Urine Ketones Negative (Negative) 04/20/20 13:05 Urine Blood Neg (Negative) 04/20/20 13:05 Urine Nitrate Negative (Negative) 04/20/20 13:05 Urine Bilirubin Neg (Negative) 04/20/20 13:05 Prot Sulfosalicylic Acd Negative (Negative) 04/20/20 13:05 Urine Urobilinogen Norm mg/dL (Negative) 04/20/20 13:05 Ur Leukocyte Esterase Negative (Negative) 04/20/20 13:05 Urine Opiates Screen Negative ng/mL (Negative) 04/20/20 13:05 Ur Barbiturates Screen Negative ng/mL (Negative) 04/20/20 13:05 Ur Phencyclidine Scrn Negative ng/mL (Negative) 04/20/20 13:05 Ur Amphetamines Screen Negative ng/mL (Negative) 04/20/20 13:05 U Benzodiazepines Scrn Negative ng/mL (Negative) 04/20/20 13:05 Urine Cocaine Screen Negative ng/mL (Negative) 04/20/20 13:05 U Marijuana (THC) Screen Negative ng/mL (Negative) 04/20/20 13:05 Ethyl Alcohol < 10 mg/dL (0-10) 04/20/20 11:50 Impressions Chest X-Ray 04/20/20 12:09 IMPRESSION: Subtle airspace disease right lung base. Subpulmonic effusion. Lungs are otherwise well aerated. Head CT 04/20/20 12:16 IMPRESSION: 1. No acute intracranial hemorrhage or edema. 2. Mild cerebral atrophy and chronic microvascular ischemic disease. No acute process identified. Notified Joseph Duffy MD at 04/20/2020 12:27 PM. Head/Neck CTA 04/20/20 12:16 IMPRESSION: 1. No significant carotid artery stenosis. Mild plaque and intimal thickening in the carotid bifurcations and intracranial carotid arteries. 2. Negative vertebral arteries. 3. Unremarkable [place]. 4. Spiculated mass LEFT upper lobe with a maximum diameter of 10.4 mm. Recommend follow-up dedicated chest CT with IV contrast which can be performed on an outpatient basis. A&P Additional A&P Information 59-year-old male presenting with left-sided chest pain, associated tingling in the left upper extremity and face, dizziness, elevated blood pressure. Hypertensive urgency, hypertensive encephalopathy. I suspect that his symptoms are related to uncontrolled hypertension. We will continue monitoring his troponin level to rule out acute coronary syndrome. However the fact that he does not have any chest pain with physical activities makes me think that it is not acute coronary syndrome. In any case I will start him on aspirin. We will give him a referral to see a lithographic photographer after discharge for outpatient stress test. Will order MRI of the brain to rule out stroke. Fasting lipids in the morning. We will resume his home medications for the blood pressure and order as needed labetalol. We will adjust his blood pressure medications prior to discharge. Chest pain. As above Left-sided tingling as above. Possible left-sided lung tumor. His chest pain could be related to this. We will go ahead and order CT of the chest per radiology recommendations. I do not want to leave it for outpatient follow-up because the patient already failed once before to follow his PCPs recommendations. He is also very concerned and very interested to see what the CT will show. We will recheck his renal function to make sure that he does not develop contrast nephropathy. Will use IV fluids to prevent nephropathy. DVT prophylaxis. Lovenox. COPD. Currently stable without evidence of exacerbation. CODE STATUS. The patient wants to be full code. The plan of care was discussed with the patient and his family. They verbalized understanding and agreement with Attestations Medical Necessity Statement*: Observation Coding Level of Care Code Acute Control Operator Flow Coat for Brian Pham
[2020-04-20] MEDS: iohexol 300 mg/mL 100 mL Btl IV (16:52)
--- NOTE | 2020-04-20 18:09 | ECG_ITS ---
[facility] Test Date: 2020-04-20 Pat Name: Guanaco Booth Department: Room: 111 Gender: Male [employer] Bo[employer] Pinner: : 1960 Requested By: Joseph Duffy Order Number: [id number] Kodi MD: Fern Juares M.D. Measurements Intervals [place] Rate: 63 P: 30 W[place]: 160 QRS: 36 QRSD: 98 T: 11 QT: 396 QTc: 406 Interpretive Statements SINUS RHYTHM Compared to ECG 04/20/2020 13:30:03 No significant changes Electronically Signed On 04-20-2020 18:55:46 PATIENT CARE REPRESENTATIVE by Fern Juares M.D. [id number]
[2020-04-20 18:57] LABS: Troponin 5 6HR 8.63 ng/L (0-15); Troponin 5 6HR Delta 0.63 ng/L (0-12)
--- NOTE | 2020-04-20 19:52 | PC.NURSE ---
Patient states I have prostate problems so I have trouble going sometimes. I get constipated sometimes if I don't keep my diet healthy and take my Citrasate. I take a probiotic everyday. I had my gallbladder removed in December.
[2020-04-20] MEDS: enoxaparin 40 mg/0.4 mL Syringe SUBCUT (19:55)
[2020-04-20] MEDS: dextrose 5%-sod chloride 0.45% 1,000 ML 75 ML IV (19:55)
[2020-04-21 02:41] VITALS: PULSE 50
[2020-04-21 04:00] VITALS: BP 110/65; PULSE 59; RESP 18; TEMP 36.2; O2SAT 97
[2020-04-21 04:49] VITALS: PULSE 55
[2020-04-21 05:01] LABS: Anion Gap 12.6 (5-19); Blood Urea Nitrogen 9 mg/dL (8-23); Calcium 9.4 mg/dL (8.5-10.5); Carbon Dioxide 28 mmol/L (22-29); Chloride 101 mmol/L (98-107); Glomerular Filtration Rate 98.3 mL/min (90-130); Glucose 117 mg/dL (65-115); Osmolality Calculated 286 mOsm/kg (285-295); Potassium 3.6 mmol/L (3.5-5.1); Sodium 138 mmol/L (136-145)
[2020-04-21 05:02] LABS: Chol HDL Ratio 6.39 mg/dL (1.0-5.00); Cholesterol 179 mg/dL (0-200); HDL Cholesterol 28 mg/dL (60-100); LDL Cholesterol Calculated 116 mg/dL (50-129); LDL HDL Ratio 4.14 RATIO (0.00-3.22); Triglycerides 177 mg/dL (0-150)
[2020-04-21] MEDS: amlodipine 5 mg Tablet PO (07:53)
[2020-04-21] MEDS: tamsulosin 0.4 mg Capsule 0.8 MG PO (07:53)
[2020-04-21] MEDS: pantoprazole DR 40 mg Tablet PO (07:54)
[2020-04-21] MEDS: lisinopril 20 mg Tablet PO (07:54)
[2020-04-21 08:00] VITALS: BP 136/76; PULSE 66; RESP 16; TEMP 36.7; O2SAT 97
[2020-04-21] MEDS: aspirin 81 mg EC Tablet PO (08:01)
--- NOTE | 2020-04-21 08:55 | PC.CHAP ---
Pastoral Care Encounter/Spiritual Assessment Type of Contact [] Declined community health promoter visit [] Patient/Family/Request visit [] Outpatient visit [] Follow-up visit [] Physician referral [] Code/Alert [x] Routine visit [] Staff referral [] Actively dying [] Patient sleeping [] Family support [] [] Out of room [] Palliative care [] [] Receiving care in room [] Pre-surgical visit [] Trauma [] Long length of stay [] ICU visit [] Other: Relational/Emotional Strength [] Patient feels connected with others/family/visitors/staff [] Distress [] Loneliness/isolation [] Abandonment Spirituality of Patient [] Person of Amirah [] Attends Latter Day of their Amirah [] Believes in Prayer [] Reads Bible or Holiness materials [] There are Spiritual issues to be addressed Ornamental Ironworking Supervisor Interventions [x] Prayer [x] Active listening [x] Non-anxious presence [x] Spiritual/emotional support [] Crisis/trauma care [] Spiritual counseling [] Bereavement support [] Provided bereavement packet [] Provided Bible/devotional materials [] Provided toy/stuffed animal, coloring book to patient or family member [] Provided Communion [] Anointing/[place] [] Salvation [x] Completed spiritual assessment [] Other: Impact on Illness or Injury [] Angry [] Fearful [] Anxious [] Often cries [] Exhaustion [] Unable to work [] Unable to attend confucianist [] Unable to walk/stand [] Unable to read [] Unable to drive [] Unable to eat/drink [] Unable to sleep [] Unable to be with family [] Patient intubated [] Other: Summary patient feeling stronger with medical report... excited about serving God Time spent with patient 15 min
[2020-04-21 09:29] VITALS: BP 136/76; PULSE 66; RESP 16; TEMP 36.7; O2SAT 97
--- NOTE | 2020-04-21 10:54 | PC.RESP ---
SMOKING CESSATION INFORMATION SENT TO PATIENT.
--- NOTE | 2020-04-21 13:19 | PM.DCS ---
Discharge Providers Date of Admission: 04/20/20 15:31 Date of Discharge: April 21, 2020 Attending Provider at Admission: Rico Poole Attending Provider at Discharge: Rico Poole Primary Care Provider: BOB Berrios Reason for Visit Reason for Visit: chest pains, dizziness 77460 R07.9 R42 Hospital Course Hospital Course 59-year-old male presenting with left-sided chest pain, associated tingling in the left upper extremity and face, dizziness, elevated blood pressure. Discharge diagnoses and problem list Hypertensive urgency, hypertensive encephalopathy. I suspect that his symptoms are related to uncontrolled hypertension. Normalized this morning with his home medications. Compliance was discussed. Chest pain. EKG is in sinus without acute ischemic changes. Troponin remained negative. Chest pain has resolved after normalization of the blood pressure. He reports good functional status. Denies chest pain with brisk long walks. I am discharging him on aspirin and Lipitor. He is asked to follow-up with a telegraphic typewriter operator chief for outpatient stress test. Referral is provided. He is also instructed to come back to emergency room if he develops any new chest pain or any other new complaints. He verbalized understanding and agreement. Left-sided tingling as above. Most likely secondary to hypertensive encephalopathy. MRI was negative. Outpatient follow-up with primary care physician. Possible left-sided lung tumor. Not confirmed by the CT. However the patient has emphysema and a left lung bleb for which I provided him with a referral to see Dr. Gastelum. Cirrhosis. Patient has history of treated hepatitis C virus. I asked him to discuss long-term monitoring and management with the primary care provider. Dyslipidemia. Starting him on Lipitor. I asked him to speak with the PCP about referral long-term management. Please monitor LFTs. DVT prophylaxis. Received Physical Exam Narrative: EXAM NARRATIVE: The patient is awake alert and oriented. No acute distress. Mood and affect are appropriate. Responses are adequate. Skin is warm and dry. Moist mucous membranes. Neck supple. No JVD Lungs are clear to auscultation bilaterally. No respiratory distress Heart S1, S2, regular Abdomen soft, nontender, bowel sounds are present Extremities no edema cyanosis or calf tenderness bilaterally Neuro examination is within normal range including cerebellar test Eyes Genny, extraocular muscles are intact. Normal speech Discharge Data Data Completed and Pending: Completed Studies During Hospitalization Category Date Time Status CT angio headneck * [id number] Stat Cat Scan 04/20/20 12:[address] chest w con* 7 1260 Urgent Cat Scan 04/20/20 16:[address] head wo con* 7 0450 Stat Cat Scan 04/20/20 12:16 Completed XR chest 1V kwame ble [id number] Stat Exams 04/20/20 12:09 Completed MR head wo con* 7 [id number] Urgent MRI 04/20/20 16:31 Completed Labs from last 24 hours 04/21/20 04/21/20 04/20/20 03:17 03:17 18:04 WBC RBC Hgb Hct MCV MCH MCHC RDW Plt Count MPV Neut % (Auto) Lymph % (Auto) [place] % (Auto) Eos % (Auto) Baso % (Auto) Neut # (Auto) Lymph # (Auto) [place] # (Auto) Eos # (Auto) Baso # (Auto) Nucleated RBC % (a uto) Nucleated RBCs # PT INR APTT D-Dimer Sodium 138 Potassium 3.6 Chloride 101 Carbon Dioxide 28 Anion Gap 12.6 BUN 9 Creatinine 0.8 GFR Calculation 98.3 Glucose 117 H Calculated Osmolal ity 286 Calcium 9.4 Total Bilirubin AST ALT Alkaline Phosphata se Troponin T Baselin e Troponin T 120 Min vanessa Delta Troponin T Troponin T Hi Sens 6Hr 8.63 Troponin T Hi Sens 6Hr Delta 0.63 NT-Pro-B Natriuret Pep Total Protein Albumin Globulin Triglycerides 177 H Cholesterol 179 LDL Cholesterol, C alc 116 HDL Cholesterol 28 L LDL/HDL Ratio 4.14 H Cholesterol/HDL Ra bakari 6.39 H Urine Color Urine Appearance Urine pH Ur Specific Gravit y Urine Protein Urine Glucose (UA) Urine Ketones Urine Blood Urine Nitrate Urine Bilirubin Prot Sulfosalicyli c Acd Urine Urobilinogen Ur Leukocyte Migdalia ase Urine Opiates Scre en Ur Barbiturates Sc reen Ur Phencyclidine S crn Ur Amphetamines Sc reen U Benzodiazepines Scrn Urine Cocaine Scre en U Marijuana (THC) Screen Ethyl Alcohol 04/20/20 04/20/20 04/20/20 14:05 13:05 13:05 WBC RBC Hgb Hct MCV MCH MCHC RDW Plt Count MPV Neut % (Auto) Lymph % (Auto) [place] % (Auto) Eos % (Auto) Baso % (Auto) Neut # (Auto) Lymph # (Auto) [place] # (Auto) Eos # (Auto) Baso # (Auto) Nucleated RBC % (a uto) Nucleated RBCs # PT INR APTT D-Dimer Sodium Potassium Chloride Carbon Dioxide Anion Gap BUN Creatinine GFR Calculation Glucose Calculated Osmolal ity Calcium Total Bilirubin AST ALT Alkaline Phosphata se Troponin T Baselin e Troponin T 120 Min vanessa 9.89 Delta Troponin T 1.89 Troponin T Hi Sens 6Hr Troponin T Hi Sens 6Hr Delta NT-Pro-B Natriuret Pep Total Protein Albumin Globulin Triglycerides Cholesterol LDL Cholesterol, C alc HDL Cholesterol LDL/HDL Ratio Cholesterol/HDL Ra bakari Urine Color Straw Urine Appearance Clear Urine pH 8 H Ur Specific Gravit y 1.010 Urine Protein Neg Urine Glucose (UA) Norm Urine Ketones Negative Urine Blood Neg Urine Nitrate Negative Urine Bilirubin Neg Prot Sulfosalicyli c Acd Negative Urine Urobilinogen Norm Ur Leukocyte Migdalia ase Negative Urine Opiates Scre en Negative Ur Barbiturates Sc reen Negative Ur Phencyclidine S crn Negative Ur Amphetamines Sc reen Negative U Benzodiazepines Scrn Negative Urine Cocaine Scre en Negative U Marijuana (THC) Screen Negative Ethyl Alcohol 04/20/20 04/20/20 04/20/20 11:50 11:50 11:50 WBC RBC Hgb Hct MCV MCH MCHC RDW Plt Count MPV Neut % (Auto) Lymph % (Auto) [place] % (Auto) Eos % (Auto) Baso % (Auto) Neut # (Auto) Lymph # (Auto) [place] # (Auto) Eos # (Auto) Baso # (Auto) Nucleated RBC % (a uto) Nucleated RBCs # PT 13.60 INR 1.01 APTT 27.5 D-Dimer <= 0.27 Sodium 139 Potassium 4.4 Chloride 102 Carbon Dioxide 26 Anion Gap 15.4 BUN 8 Creatinine 0.8 GFR Calculation 98.3 Glucose 115 Calculated Osmolal ity 287 Calcium 10.2 Total Bilirubin 0.5 AST 21 ALT 27 Alkaline Phosphata se 128 Troponin T Baselin e 8 Troponin T 120 Min vanessa Delta Troponin T Troponin T Hi Sens 6Hr Troponin T Hi Sens 6Hr Delta NT-Pro-B Natriuret Pep 34 Total Protein 8.1 Albumin 4.6 Globulin 3.5 Triglycerides Cholesterol LDL Cholesterol, C alc HDL Cholesterol LDL/HDL Ratio Cholesterol/HDL Ra bakari Urine Color Urine Appearance Urine pH Ur Specific Gravit y Urine Protein Urine Glucose (UA) Urine Ketones Urine Blood Urine Nitrate Urine Bilirubin Prot Sulfosalicyli c Acd Urine Urobilinogen Ur Leukocyte Migdalia ase Urine Opiates Scre en Ur Barbiturates Sc reen Ur Phencyclidine S crn Ur Amphetamines Sc reen U Benzodiazepines Scrn Urine Cocaine Scre en U Marijuana (THC) Screen Ethyl Alcohol < 10 04/20/20 11:50 WBC 7.8 RBC 5.13 Hgb 14.8 Hct 44.7 MCV 87.1 MCH 28.8 MCHC 33.1 RDW 11.9 L Plt Count 236 MPV 11.7 H Neut % (Auto) 75.9 Lymph % (Auto) 17.3 [place] % (Auto) 5.0 Eos % (Auto) 0.8 Baso % (Auto) 0.6 Neut # (Auto) 5.94 Lymph # (Auto) 1.4 [place] # (Auto) 0.4 Eos # (Auto) 0.1 Baso # (Auto) 0.1 Nucleated RBC % (a uto) 0 Nucleated RBCs # 0.0 PT INR APTT D-Dimer Sodium Potassium Chloride Carbon Dioxide Anion Gap BUN Creatinine GFR Calculation Glucose Calculated Osmolal ity Calcium Total Bilirubin AST ALT Alkaline Phosphata se Troponin T Baselin e Troponin T 120 Min vanessa Delta Troponin T Troponin T Hi Sens 6Hr Troponin T Hi Sens 6Hr Delta NT-Pro-B Natriuret Pep Total Protein Albumin Globulin Triglycerides Cholesterol LDL Cholesterol, C alc HDL Cholesterol LDL/HDL Ratio Cholesterol/HDL Ra bakari Urine Color Urine Appearance Urine pH Ur Specific Gravit y Urine Protein Urine Glucose (UA) Urine Ketones Urine Blood Urine Nitrate Urine Bilirubin Prot Sulfosalicyli c Acd Urine Urobilinogen Ur Leukocyte Migdalia ase Urine Opiates Scre en Ur Barbiturates Sc reen Ur Phencyclidine S crn Ur Amphetamines Sc reen U Benzodiazepines Scrn Urine Cocaine Scre en U Marijuana (THC) Screen Ethyl Alcohol Vitals: Last Vital Signs Temp 98.0 F 04/21/20 09:29 Pulse 66 04/21/20 09:29 Resp 16 04/21/20 09:29 BP 136/76 04/21/20 09:29 Pulse Ox 97 04/21/20 09:29 Discharge Plan Discharge Patient Disposition: Home Condition: Stable Prescriptions: New atorvastatin 40 mg Tablet 10 mg PO BEDTIME Qty: 30 RF: 0 aspirin 81 mg Tablet,Delayed Release (Dr/Ec) 81 mg PO DAILY Qty: 30 RF: 0 Continued tamsulosin [Flomax] 0.4 mg capsule 0.8 mg PO DAILY@08 RF: 0 lisinopril 20 mg tablet 20 mg PO DAILY@08 RF: 0 amlodipine 5 mg Tablet 5 mg PO DAILY@08 RF: 0 zinc 50 mg Tablet 50 mg PO DAILY@08 RF: 0 Vitamin D3 25 mcg (1,000 unit) Tablet 25 mcg PO DAILY@08 RF: 0 omeprazole 20 mg capsule,delayed release(DR/EC) 20 mg PO DAILY@08 RF: 0 melatonin 5 mg Tablet 5 mg PO BEDTIME RF: 0 Probiotic 3 billion cell Capsule 3,000 mmu cells PO DAILY RF: 0 methylcellulose (with sugar) Powder In Packet 1 ea PO DAILY RF: 0 Discontinued ibuprofen 200 mg Tablet 400 mg PO DAILY@08 RF: 0 Discharge Orders: Discharge Order (Routine); Ordered 04/21/20 Ordered By: Rico Poole Referrals: Cristofer Whitman M.D [Physician] - (Please follow-up with Dr. Whitman on April 30 at 12:15p.m. If you have any questions or need to reschedule. Please call ) Osiris Dash ARNP [Primary Care Provider] - 1 week (Please follow-up with Osiris ROJAS on April 28 at 1:00p.m. If you have any questions or need to reschedule. Please call ) Citlalli Gastelum MD [Physician] - 2 weeks (Please follow-up with Dr. Gastelum on at 9:15a.m. If you have any questions or need to reschedule. Pleae call ) Discharge Diet: Low Fat Discharge Activity: Resume usual activity Patient Instructions: COPD - Emphysema, Cardiac Stress Test (GEN), Chest Pain (DC), Spontaneous Pneumothorax (GEN), Chronic Hypertension (GEN), Hypertension (DC), Chest Pain Stoplight Activity Restrictions/Additional Instructions: Please follow-up with your primary care physician and lung and heart specialists. Referrals are provided. Speak with them about management of your high blood pressure, possible heart disease, need for the stress test, emphysema, lung bleb. Please come back to emergency room if develop any dizziness, lightheadedness, weakness, problems with speech, balance, gait, facial asymmetry, chest pain, palpitations, shortness of breath, or any other new symptoms. Please ask your doctor to monitor your liver enzymes. Discharge Attestations Time Spent in Discharge Care*: less than 30 min Quality Metrics Clinical Quality Measures During this hospital stay, did patient experience: None Coding Level of Care Code Acute Body Wirer for Brian Pham
== END 2020-04-21 10:33 | disposition home or self-care (01) ==
LOC: ER 15:41 → CSU 18:20
PROVIDERS: Admitting Provider Internal Medicine; Emergency Provider Family Medicine; PCP Nurse Practitioner Family; Visit Provider Internal Medicine
DX: R07.9 Chest pain, unspecified (principal); R20.2 Paresthesia of skin; R42 Dizziness and giddiness; I16.0 Hypertensive urgency; Z86.19 Personal history of other infectious and parasitic diseases; K74.60 Unspecified cirrhosis of liver; E78.5 Hyperlipidemia, unspecified; I10 Essential (primary) hypertension
CPT/HCPCS: 12345; 36415; 70450; 70496; 70498; 70551; 71045; 71260; 80048; 80053; 80061; 80306; 80307; 81003; 83880; 84484; 85025; 85378; 85610; 85730; 93005; 96360; 96361; 96372; 99282; 99285; G0378; J1650; J7799; Q9967

== ENCOUNTER → 2020-07-22 16:14 | Outpatient (BNVA) | payer SELFPAY | PROVIDERS: PCP Nurse Practitioner Family; Visit Provider Internal Medicine | DX: K74.60 Unspecified cirrhosis of liver (principal); R76.8 Other specified abnormal immunological findings in serum | CPT/HCPCS: 82105 ==

== ENCOUNTER 2020-08-24 09:44 | Outpatient (CLI) | payer SELFPAY ==
--- NOTE | 2020-08-24 10:15 | US_ITS ---
WS: [id number] RIGHT UPPER QUADRANT ULTRASOUND HISTORY: K74.60 - Unspecified cirrhosis of liver COMPARISON: 02/01/2019 Liver: 16.6 cm in length. Mildly enlarged liver. Surface of the liver is nodular. Similar to the prio r examination. No mass. No bile duct dilatation. Gallbladder: Status post cholecystectomy. CBD: 0.7 cm Pancreas: Normal size and echogenicity. Right kidney: 13.1 cm in length. Normal size and echogenicity. No hydronephrosis or mass. Aorta and IVC: Unremarkable abdominal aorta and IVC. No ascites. US/US liver [id number] IMPRESSION: 1. Prior cholecystectomy. 2. Mildly enlarged liver with changes of cirrhosis. No hepatic mass.
== END 2020-08-24 09:45 | disposition home or self-care (01) ==
LOC: RAD 09:47
PROVIDERS: PCP Nurse Practitioner Family; Visit Provider Internal Medicine
DX: K74.60 Unspecified cirrhosis of liver (principal); Z90.49 Acquired absence of other specified parts of digestive tract; R16.0 Hepatomegaly, not elsewhere classified
CPT/HCPCS: 76705

== ENCOUNTER 2020-12-11 11:41 | Emergency (ER) | payer SELFPAY ==
[2020-12-11 12:21] VITALS: BP 123/80; PULSE 59; RESP 15; TEMP 36.7; O2SAT 98; BMI 31.9
--- NOTE | 2020-12-11 15:19 | CTR_ITS ---
PROCEDURE INFORMATION: Exam: CT Abdomen And Pelvis With Contrast Exam date and time: 12/11/2020 3:19 PM Age: 60 years old Clinical indication: Abdominal pain; Localized; Left lower quadrant (llq); Patient HX: C/O llq pain HX of hep c; Additional info: Diverticulitis suspected TECHNIQUE: Imaging protocol: Computed tomography of the abdomen and pelvis with contrast. Radiation optimization: All CT scans at this facility use at least one of these dose optimization techniques: automated exposure control; mA and/or kV adjustment per patient size (includes targeted exams where dose is matched to clinical indication); or iterative reconstruction. Contrast material: OMNI 300; Contrast volume: 95 ml; Contrast route: INTRAVENOUS (IV); COMPARISON: CT abdomen pelvis w con* [id number] 04/01/2019 9:49 AM RADIATION DOSE METRICS: Total DLP (mGy-cm): 1735.57 FINDINGS: Liver: Normal. No mass. Gallbladder and bile ducts: Cholecystectomy. The bile ducts are normal. Pancreas: Normal. No ductal dilation. Spleen: Calcified granulomas in the spleen. Adrenal glands: Normal. No mass. Kidneys and ureters: Normal. No hydronephrosis. Stomach and bowel: Diverticulosis of the descending and sigmoid colon. There is mild inflammation within a single diverticulum in the proximal sigmoid colon with mild adjacent fat inflammation. The small bowel is unremarkable. No obstruction or wall thickening. The stomach is normal. Appendix: The appendix is visualized and is normal. Intraperitoneal space: Unremarkable. No free air. No significant fluid collection. Vasculature: Unremarkable. No abdominal aortic aneurysm. Lymph nodes: Unremarkable. No enlarged lymph nodes. Urinary bladder: Unremarkable as visualized. Reproductive: Unremarkable as visualized. Bones/joints: Degenerative lumbar spine. No fracture. Soft tissues: Small fat containing left inguinal hernia. CT/CT abdomen pelvis w con* [id number] IMPRESSION: 1. Mild acute diverticulitis involving the proximal sigmoid colon. Radiation Dose CTDIVOL = (mGy): DLP = 1735.57 (mGy-cm)
--- NOTE | 2020-12-11 15:19 | ED_ITS ---
Documented by User: Brittani Hester PA-C 12/11/20 16:45 HPI - Abdominal Pain General: Chief Complaint: Abdominal Pain Stated Complaint: Abdominal pain after eating Time Seen by Provider: 12/11/20 15:17 Source: patient Mode of arrival: ambulatory Limitations: no limitations History of Present Illness: HPI narrative: 60-year-old male presents to the ER today with spouse for left lower quadrant pain x2 weeks. Patient reports this started about 2 weeks ago and he saw his PCP which put him on Cipro and Flagyl. Patient finished that dose on Monday but had another flareup as he describes it of diverticulitis while taking the medication. Patient reports he did okay for a couple days after finishing the antibiotics but for the last 2 days has had increased pain in the left lower quadrant which radiates suprapubically. Patient reports decreased appetite, nausea, and 15+ episodes of watery diarrhea. Patient denies any fever or chills. Patient reports he had a colonoscopy that confirmed the diverticulitis, and had a CT done about 1 year ago. Patient denies any pain with urination or change in urinary habits. Patient denies headache, chest pain, shortness of breath, vomiting, constipation. MD elicited complaint: abdominal pain Pertinent past history: diverticulitis Onset (ago): week(s) (2) Pain Consistency: intermittent Location: LLQ Severity: moderate Pain scale (0-10): 8 Quality: cramping and sharp Radiation: LLQ and suprapubic Migration to: suprapubic Exacerbating factors: eating Relieving factors: nothing Associated Symptoms: Reports bloating, change in stool character, diarrhea, nausea and poor appetite; Denies chills, constipation, dysuria, fever(s) and hematochezia Review of Systems Const: Reports: change in appetite; Denies: fever(s), chills or fatigue ENMT: Denies: throat pain, nasal discharge or nasal congestion Card: Denies: chest pain or edema Resp: Denies: dyspnea or wheezing GI: Reports: abdominal pain, nausea, diarrhea, bloating and change in stool character; Denies: constipation or hematochezia : Denies: flank pain, difficulty urinating, dysuria, urinary frequency, uri nary urgency or urinary hesitancy Musc: Denies: back pain Skin/Breast: Denies: rash Neuro: Denies: headache(s) Psych: Denies: anxiety or depression PFSH ED PFSH: Medical History (Updated 12/11/20 @ 17:59 by FRANKIE Medel) Acute diverticulitis BPH (benign prostatic hyperplasia) Constipation Fatty infiltration of liver Hepatitis C antibody positive in blood Hypertension Pre-diabetes Surgical History Cholelithiasis Family History Father Cancer prostate Grandfather Cancer lung Family/Other Hypertension Diabetes Denies family history of Anesthesia complication Bleeding disorder Social History Smoking and tobacco status: former smoker Quit status (tobacco): has quit using tobacco Year quit tobacco: May 2019 Former quit date comment: Hx of 1PPD x 43 Years & Marijuana daily Second hand smoke exposure: No Smoking risk assessment/counseling performed?: No Alcohol intake: never Counseling given: No Counseling given: No Lives independently: Yes Household members: none Housing: House Marital status: Highest education level completed: High School Graduate service: No Current occupational status: disabled Pets and animals: No History of recent travel: No Leisure activites: hunting and fishing Sexually active: No Current gender identity: Male Amirah/Sabianism: Evangelical Special amirah needs: No Agree to transfusion: Yes Financial difficulty paying for basics: Decline to Answer Physical Exam Const: COMMON NORMALS: no acute distress, average body habitus and patient oriented x3 GENERAL APPEARANCE: cooperative HENMT: COMMON NORMALS: normocephalic HEAD & SCALP: normocephalic Neck/C-Spine: COMMON NORMALS: no JVD Lymph: LYMPHATIC: no lymphadenopathy noted Resp: COMMON NORMALS: normal respiratory effort, No retractions and clear to auscultation bilaterally EFFORT & INSPECTION: Yes able to speak in complete sentences AUSCULTATION: clear to auscultation bilaterally Cardio: COMMON NORMALS: no JVD, regular rate, regular rhythm and No murmurs present (Cardio) RATE: regular rate RHYTHM: regular rhythm GI: AUSCULTATION: Yes normoactive bowel sounds PALPATION: Yes Firmness to palpation present (GI) and Yes Tenderness to palpation present (GI) Details: LLQ Back/Pelvis: COMMON NORMALS: no thoracic nor lumbar tenderness and thoraco- lumbar ROM normal Extremity: COMMON NORMALS: normal to inspection and full ROM Neuro: COMMON NORMALS: patient oriented x3 and moves all extremities Psych: COMMON NORMALS: mental status grossly normal Skin: COMMON NORMALS: no rashes or lesions noted GENERAL SKIN EXAM: no rashes or lesions noted Course ED course: We will do lab work and get CT given patient failed outpatient antibiotics and is still having pain. Vital Signs: Vital signs: Vital Signs Temperature 98.0 F 12/11/20 12:21 Pulse Rate 59 L 12/11/20 12:21 Respiratory Rate 15 12/11/20 12:21 Blood Pressure 123/80 12/11/20 12:21 Pulse Oximetry 98 12/11/20 12:21 MDM - Abdominal Pain Differential Diagnosis: Differential diagnosis abdominal pain: Likely diverticulitis and small bowel obstruction Lab Data: Attestation: I reviewed the patient's lab results. Lab results narrative: Labs reviewed and unremarkable Labs: Lab Results 12/11/20 12/11/20 Range/Units 15:32 15:32 WBC 7.6 (4.0-10.0) 10^3/ uL RBC 5.65 H (4.1-5.3) 10^6/u L Hgb 16.4 (11.7-16.6) g/dL Hct 49.9 (42.0-52.0) % MCV 88.3 (80-94) fl MCH 29.0 (28.0-34.0) pg MCHC 32.9 (30.0-36.0) g/dL RDW 11.9 L (12.1-15.1) % Plt Count 299 (130-400) 10^3/c mm MPV 9.7 (7.4-10.4) fL Neut % (Auto) 68.6 % Lymph % (Auto) 22.4 % [place] % (Auto) 6.1 % Eos % (Auto) 1.4 % Baso % (Auto) 0.8 % Neut # (Auto) 5.21 (1.8-7.7) 10^3/u L Lymph # (Auto) 1.7 (0.8-4.8) 10^3/u L [place] # (Auto) 0.5 (0.2-0.9) 10^3/u L Eos # (Auto) 0.1 (0.0-0.8) 10^3/u L Baso # (Auto) 0.1 (0.0-0.1) 10^3/u L Nucleated RBC % (a uto) 0 % Nucleated RBCs # 0.0 /100WBC Sodium 136 (136-145) mmol/L Potassium 4.4 (3.5-5.1) mmol/L Chloride 98 (98-107) mmol/L Carbon Dioxide 27 (22-29) mmol/L Anion Gap 15.4 (5-19) BUN 11 (8-23) mg/dL Creatinine 0.7 (0.7-1.2) mg/dL GFR Calculation 114.3 (90-130) mL/min Glucose 104 (65-115) mg/dL Calculated Osmolal ity 282 L (285-295) mOsm/k g Calcium 9.8 (8.5-10.5) mg/dL Total Bilirubin 0.5 (0.15-1.2) mg/dL AST 23 (0-40) U/L ALT 24 (0-41) U/L Alkaline Phosphata se 120 (40-130) IU/L Total Protein 9.3 H (6.6-8.7) g/dL Albumin 4.7 (3.5-5.2) g/dL Globulin 4.6 (1.3-4.6) g/dL Lipase 23 (13-60) U/L Discharge Plan Discharge Patient Disposition: Home Clinical Impression: Acute diverticulitis Condition: Stable Prescriptions: New Bactrim DS 800-160 mg tablet 1 tab PO BID 7 Days Qty: 14 RF: 0 hydrocodone-acetaminophen 5-325 mg tablet 1 tab PO Q8H PRN (Reason: pain (scale score 7-10)) Qty: 7 RF: 0 metronidazole 500 mg tablet 500 mg PO BID 7 Days Qty: 14 RF: 0 No Action tamsulosin [Flomax] 0.4 mg capsule 0.8 mg PO DAILY@08 RF: 0 lisinopril 20 mg tablet 20 mg PO DAILY@08 RF: 0 albuterol sulfate 90 mcg/actuation HFA aerosol inhaler 2 puff inhalation Q6H PRNRF: 0 amlodipine 5 mg Tablet 5 mg PO DAILY@08 RF: 0 zinc 50 mg Tablet 50 mg PO DAILY@08 RF: 0 Vitamin D3 25 mcg (1,000 unit) Tablet 25 mcg PO DAILY@08 RF: 0 omeprazole 20 mg capsule,delayed release(DR/EC) 20 mg PO DAILY@08 RF: 0 melatonin 5 mg Tablet 5 mg PO BEDTIME RF: 0 Probiotic 3 billion cell Capsule 3,000 mmu cells PO DAILY RF: 0 methylcellulose (with sugar) Powder In Packet 1 ea PO DAILY RF: 0 atorvastatin 40 mg Tablet 10 mg PO BEDTIME Qty: 30 RF: 0 aspirin 81 mg Tablet,Delayed Release (Dr/Ec) 81 mg PO DAILY Qty: 30 RF: 0 Discharge Orders: Discharge ED (Routine); Ordered 12/11/20 Ordered By: Iam Shannon Referrals: Coty Raymundo NP [Primary Care Provider] - Discharge Diet: Advance as tolerated Discharge Activity: Increase activity as tolerated Patient Instructions: Diverticulitis (ED), Diverticulitis Diet (ED), Opioid Safety Activity Restrictions/Additional Instructions: Drink plenty of fluids with medication. Stay on a clear liquid diet for next 24 to 48 hours. After that try to increase diet as tolerated. Avoid foods with seeds, husks, and nuts. Follow-up with primary care for further instruction. Return to the ER for new concerns. Sign Out Sign Out Data: Patient Sign Out occurred on 12/11/20 at 17:00. Patient's care was discussed, and care was transferred from Brittani Hester PA-C to Iam Shannon. Sign Out Comment: Patient signed out to Cameron Shannon, report given, waiting on CT at this time. Patient is stable and denies any discomfort at this time. Last updated by Brittani Hester PA-C at 12/11/20 16:56 Coding Level of Care Code ED [employer] [place] [employer] for Chg Fwd Exam Comprehensive Documented by User: FRANKIE Medel 12/11/20 18:01 HPI - Abdominal Pain General: Chief Complaint: Abdominal Pain Stated Complaint: Abdominal pain after eating Time Seen by Provider: 12/11/20 15:17 PFSH ED PFSH: Medical History (Updated 12/11/20 @ 17:59 by FRANKIE Medel) Acute diverticulitis BPH (benign prostatic hyperplasia) Constipation Fatty infiltration of liver Hepatitis C antibody positive in blood Hypertension Pre-diabetes Surgical History Cholelithiasis Family History Father Cancer prostate Grandfather Cancer lung Family/Other Hypertension Diabetes Denies family history of Anesthesia complication Bleeding disorder Social History Smoking and tobacco status: former smoker Quit status (tobacco): has quit using tobacco Year quit tobacco: May 2019 Form er quit date comment: Hx of 1PPD x 43 Years & Marijuana daily Second hand smoke exposure: No Smoking risk assessment/counseling performed?: No Alcohol intake: never Counseling given: No Counseling given: No Lives independently: Yes Household members: none Housing: House Marital status: Highest education level completed: High School Graduate service: No Current occupational status: disabled Pets and animals: No History of recent travel: No Leisure activites: hunting and fishing Sexually active: No Current gender identity: Male Amirah/Sabianism: Evangelical Special amirah needs: No Agree to transfusion: Yes Financial difficulty paying for basics: Decline to Answer Course Vital Signs: Vital signs: Vital Signs Temperature 98.0 F 12/11/20 12:21 Pulse Rate 59 L 12/11/20 12:21 Respiratory Rate 15 12/11/20 12:21 Blood Pressure 123/80 12/11/20 12:21 Pulse Oximetry 98 12/11/20 12:21 MDM - Abdominal Pain MDM Narrative: Medical decision making narrative: Patient comes in with some abdominal pain and diarrhea episodes. Patient had recently finished antibiotic for diverticulitis. Patient reports his pain is similar to his diverticulitis. On exam abdomen is soft with some mild distention. Bowel sounds are hyperactive. Differential diagnosis includes diverticulitis, bowel obstruction, gastroenteritis. Laboratory values were unremarkable. CT scan of the abdomen pelvis with contrast noticed mild acute diverticulitis. Patient will be restarted on antibiotics Bactrim and metronidazole. He may also give patient some hydrocodone to use as needed for abdominal pain. Patient reported understanding of care plan and need for follow-up or return to the ER. Lab Data: Labs: Lab Results 12/11/20 12/11/20 Range/Units 15:32 15:32 WBC 7.6 (4.0-10.0) 10^3/ uL RBC 5.65 H (4.1-5.3) 10^6/u L Hgb 16.4 (11.7-16.6) g/dL Hct 49.9 (42.0-52.0) % MCV 88.3 (80-94) fl MCH 29.0 (28.0-34.0) pg MCHC 32.9 (30.0-36.0) g/dL RDW 11.9 L (12.1-15.1) % Plt Count 299 (130-400) 10^3/c mm MPV 9.7 (7.4-10.4) fL Neut % (Auto) 68.6 % Lymph % (Auto) 22.4 % [place] % (Auto) 6.1 % Eos % (Auto) 1.4 % Baso % (Auto) 0.8 % Neut # (Auto) 5.21 (1.8-7.7) 10^3/u L Lymph # (Auto) 1.7 (0.8-4.8) 10^3/u L [place] # (Auto) 0.5 (0.2-0.9) 10^3/u L Eos # (Auto) 0.1 (0.0-0.8) 10^3/u L Baso # (Auto) 0.1 (0.0-0.1) 10^3/u L Nucleated RBC % (a uto) 0 % Nucleated RBCs # 0.0 /100WBC Sodium 136 (136-145) mmol/L Potassium 4.4 (3.5-5.1) mmol/L Chloride 98 (98-107) mmol/L Carbon Dioxide 27 (22-29) mmol/L Anion Gap 15.4 (5-19) BUN 11 (8-23) mg/dL Creatinine 0.7 (0.7-1.2) mg/dL GFR Calculation 114.3 (90-130) mL/min Glucose 104 (65-115) mg/dL Calculated Osmolal ity 282 L (285-295) mOsm/k g Calcium 9.8 (8.5-10.5) mg/dL Total Bilirubin 0.5 (0.15-1.2) mg/dL AST 23 (0-40) U/L ALT 24 (0-41) U/L Alkaline Phosphata se 120 (40-130) IU/L Total Protein 9.3 H (6.6-8.7) g/dL Albumin 4.7 (3.5-5.2) g/dL Globulin 4.6 (1.3-4.6) g/dL Lipase 23 (13-60) U/L Discharge Plan Discharge Patient Disposition: Home Clinical Impression: Acute diverticulitis Condition: Stable Prescriptions: New Bactrim DS 800-160 mg tablet 1 tab PO BID 7 Days Qty: 14 RF: 0 hydrocodone-acetaminophen 5-325 mg tablet 1 tab PO Q8H PRN (Reason: pain (scale score 7-10)) Qty: 7 RF: 0 metronidazole 500 mg tablet 500 mg PO BID 7 Days Qty: 14 RF: 0 No Action tamsulosin [Flomax] 0.4 mg capsule 0.8 mg PO DAILY@08 RF: 0 lisinopril 20 mg tablet 20 mg PO DAILY@08 RF: 0 albuterol sulfate 90 mcg/actuation HFA aerosol inhaler 2 puff inhalation Q6H PRNRF: 0 amlodipine 5 mg Tablet 5 mg PO DAILY@08 RF: 0 zinc 50 mg Tablet 50 mg PO DAILY@08 RF: 0 Vitamin D3 25 mcg (1,000 unit) Tablet 25 mcg PO DAILY@08 RF: 0 omeprazole 20 mg capsule,delayed release(DR/EC) 20 mg PO DAILY@08 RF: 0 melatonin 5 mg Tablet 5 mg PO BEDTIME RF: 0 Probiotic 3 billion cell Capsule 3,000 mmu cells PO DAILY RF: 0 methylcellulose (with sugar) Powder In Packet 1 ea PO DAILY RF: 0 atorvastatin 40 mg Tablet 10 mg PO BEDTIME Qty: 30 RF: 0 aspirin 81 mg Tablet,Delayed Release (Dr/Ec) 81 mg PO DAILY Qty: 30 RF: 0 Discharge Orders: Discharge ED (Routine); Ordered 12/11/20 Ordered By: Iam Shannon Referrals: Coty Raymundo, [employer] [Primary Care Provider] - Discharge Diet: Advance as tolerated Discharge Activity: Increase activity as tolerated Patient Instructions: Diverticulitis (ED), Diverticulitis Diet (ED), Opioid Safety Activity Restrictions/Additional Instructions: Drink plenty of fluids with medication. Stay on a clear liquid diet for next 24 to 48 hours. After that try to increase diet as tolerated. Avoid foods with seeds, husks, and nuts. Follow-up with primary care for further instruction. Return to the ER for new concerns. Sign Out Sign Out Data: Patient Sign Out occurred on 12/11/20 at 17:00. Patient's care was discussed, and care was transferred from Brittani Hester PA-C to Iam Shannon. Sign Out Comment: Patient signed out to Cameron Shannon, report given, waiting on CT at this time. Patient is stable and denies any discomfort at this time. Last updated by Brittani Hester PA-C at 12/11/20 16:56 Coding Level of Care Code ED [place] [employer] for Chg Fwd Exam Comprehensive
[2020-12-11 15:39] LABS: Basophils # 0.1 10^3/uL (0.0-0.1); Basophils % 0.8 %; Eosinophils # 0.1 10^3/uL (0.0-0.8); Eosinophils % 1.4 %; Hematocrit 49.9 % (42.0-52.0); Hemoglobin 16.4 g/dL (11.7-16.6); Lymphocytes # 1.7 10^3/uL (0.8-4.8); Lymphocytes % 22.4 %; Mean Corpuscular HGB Conc 32.9 g/dL (30.0-36.0); Mean Corpuscular Volume 88.3 fl (80-94); Mean Platelet Volume 9.7 fL (7.4-10.4); Monocytes # 0.5 10^3/uL (0.2-0.9); Monocytes % 6.1 %; Neutrophils # 5.21 10^3/uL (1.8-7.7); Neutrophils % 68.6 %; Nucleated Red Blood Cells % 0 %; Platelet Count 299 10^3/cmm (130-400); Red Blood Count 5.65 10^6/uL (4.1-5.3); Red Cell Distribution Width 11.9 % (12.1-15.1); White Blood Count 7.6 10^3/uL (4.0-10.0)
[2020-12-11 16:03] LABS: Alanine Aminotransferase 24 U/L (0-41); Albumin Level 4.7 g/dL (3.5-5.2); Alkaline Phosphatase 120 IU/L (40-130); Anion Gap 15.4 (5-19); Aspartate Amino Transferase 23 U/L (0-40); Blood Urea Nitrogen 11 mg/dL (8-23); Calcium 9.8 mg/dL (8.5-10.5); Carbon Dioxide 27 mmol/L (22-29); Chloride 98 mmol/L (98-107); Globulin 4.6 g/dL (1.3-4.6); Glomerular Filtration Rate 114.3 mL/min (90-130); Glucose 104 mg/dL (65-115); Lipase 23 U/L (13-60); Osmolality Calculated 282 mOsm/kg (285-295); Potassium 4.4 mmol/L (3.5-5.1); Sodium 136 mmol/L (136-145); Total Bilirubin 0.5 mg/dL (0.15-1.2); Total Protein 9.3 g/dL (6.6-8.7)
[2020-12-11] MEDS: iohexol 300 mg/mL 100 mL Btl IV (16:58)
[2020-12-11] MEDS: metroNIDAZOLE 500 MG Tablet PO (18:09)
[2020-12-11] MEDS: HYDROcodone-acetaminophen 5-325 mg Tablet 1 TAB PO (18:09)
[2020-12-11] MEDS: sulfamethoxazole-trimeth DS 160-800 mg Tablet 1 TAB PO (18:09)
[2020-12-11 18:19] VITALS: BP 130/73; PULSE 67; RESP 16; O2SAT 99
== END 2020-12-11 18:16 | disposition home or self-care (01) ==
PROVIDERS: Physician Assistant; Emergency Provider Nurse Practitioner Family; PCP Nurse Practitioner Family
DX: K57.92 Diverticulitis of intestine, part unspecified, without perforation or abscess without bleeding (principal); Z79.82 Long term (current) use of aspirin; I10 Essential (primary) hypertension; Z87.891 Personal history of nicotine dependence
CPT/HCPCS: 74177; 80053; 83690; 85025; 99283; Q9967